=== PATIENT | female | born 1940 | race Caucasian/White ===

== ENCOUNTER 2016-11-17 17:31 | Emergency (ER) | payer MEDICARE, BC ==
[2016-11-17] MEDS ORDERED: Sodium Chloride 0.9% 10 ML Syringe FLUSH PRN (18:52)
[2016-11-17] MEDS ORDERED: Iopamidol 612 MG/ML 100 ML Bottle IV PRN (18:54)
[2016-11-17 19:30] VITALS: BP 182/102
--- NOTE | 2016-11-17 19:34 | EDM.PDOC ---
ED HPI GENERAL MEDICAL PROBLEM - General Chief Complaint: Abdominal Pain Stated Complaint: EXTREME STOMACH ACHE FOR 10 DAYS Time Seen by Provider: 11/17/16 18:19 Source of Information: Reports: Patient History Limitations: Reports: No Limitations - History of Present Illness INITIAL COMMENTS - FREE TEXT/NARRATIVE: This lady complains of an extreme stomach ache for the past 10 days. It's gotten worse over the past 3 days. She has vomited occasionally. She says she can't hold anything down. There's been no blood in the vomitus she denies any kind of bowel problems. Her last bowel movement was yesterday. She describes occasional chills. She denies any urinary symptoms she denies back pain. The abdominal pain is continuous. Abdomen Pain Score (Numeric/FACES): 10 - Related Data Allergies Allergy/AdvReac Type Severity Reaction Status Date / Time nitrofurantoin Allergy Intermediate Rash Verified 11/17/16 18:26 [From Furadantin] nitrofurantoin Allergy Intermediate Rash Verified 11/17/16 18:26 macrocrystalline [From Macrodantin] latex Allergy Rash Verified 11/17/16 18:26 Home Meds: Home Meds Aspirin [Children's Aspirin] 2 tab PO DAILY 12/27/13 [History] Calcium Carb & Citrate/Vit D3 [Calcium + D3 ER Tablet] 750 tab PO BID 12/27/13 [ History] Diltiazem HCl [Diltiazem ER] 1 tab PO DAILY 12/27/13 [History] Glucosamine/D3/Boswellia Kathryn [Osteo Bi-Flex Caplet] 1 tab PO DAILY 12/27/13 [ History] Multivitamin [Multi Vitamin Daily] 1 tab PO DAILY 12/27/13 [History] Niacin 1,000 mg PO DAILY 12/27/13 [History] [place]-3 Fatty Acids [Fish Oil] 1,000 mg PO DAILY 12/27/13 [History] cycloSPORINE [Restasis] 1 drop TOP BID 12/27/13 [History] Levothyroxine 1 tab PO DAILY 11/17/16 [History] Lisinopril [Lisinopril] 1 tab PO DAILY 11/17/16 [History] Rosuvastatin Calcium [Rosuvastatin Calcium] 5 mg PO BEDTIME 11/17/16 [History] metFORMIN [Glucophage] 500 mg PO BIDMEALS 11/17/16 [History] Past Medical History HEENT History: Reports: Cataract, Impaired Vision Cardiovascular History: Reports: High Cholesterol, Hypertension 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 History: Reports: Endometriosis Musculoskeletal History: Reports: Fracture, Other (See Below) Other Musculoskeletal History: left wrist fx Endocrine/Metabolic History: Reports: Hypothyroidism - Past Surgical History Female Surgical History: Reports: Hysterectomy Oncologic Surgical History: Reports: Biopsy of Breast Social & Family History - Tobacco Use Smoking Status *Q: Light Tobacco Smoker Years of Tobacco use: 24 Packs/Tins Daily: 0.5 - Alcohol Use Days Per Week of Alcohol Use: 2 Number of Drinks Per Day: 1 Total Drinks Per Week: 2 - Recreational Drug Use Recreational Drug Use: No ED ROS GENERAL - Review of Systems Review Of Systems: See Below Constitutional: Reports: Chills HEENT: Reports: No Symptoms Respiratory: Reports: No Symptoms Cardiovascular: Reports: No Symptoms Endocrine: Reports: No Symptoms GI/Abdominal: Reports: Abdominal Pain, Vomiting : Reports: No Symptoms Musculoskeletal: Reports: No Symptoms Skin: Reports: No Symptoms Neurological: Reports: No Symptoms ED EXAM, GI/ABD - Physical Exam Exam: See Below Exam Limited By: No Limitations General Appearance: Alert, WD/WN, No Apparent Distress Eyes: Bilateral: Normal Appearance Ears: Normal External Exam Nose: Normal Inspection Throat/Mouth: Normal Inspection Head: Atraumatic Neck: Normal Inspection Respiratory/Chest: Lungs Clear Cardiovascular: Regular Rate, Rhythm, No Murmur GI/Abdominal Exam: Soft, Other (Hypoactive bowel sounds. Clearly palpable large stool mass to the right side of the abdomen. Smaller stool mass to the left and then left lower quadrant. Some moderate tenderness across the upper abdomen but no Cano sign.) Extremities: Normal Inspection Neurological: Alert, Oriented Psychiatric: Normal Affect Skin Exam: Warm, Dry Course - Vital Signs Last Recorded V/S: Last Vital Signs Temp 36.4 C 11/17/16 18:23 Pulse 72 11/17/16 19:30 Resp 16 11/17/16 19:30 BP 182/102 H 11/17/16 19:30 Pulse Ox 97 11/17/16 19:30 - Orders/Labs/Meds Orders: Active Orders 24 hr Category Date Time Status Abdomen Pelvis w Cont [CT] Stat Exams 11/17/16 18:50 Taken Iopamidol [Isovue-300 (61%)] Med 11/17/16 18:54 Active 96 ml IV . DIRECTED PRN Sodium Chloride 0.9% [Normal Saline] 1,000 ml Med 11/17/16 19:45 Active IV ASDIRECTED Sodium Chloride 0.9% [Normal Saline] 70 ml Med 11/17/16 19:00 Active IV ASDIRECTED Sodium Chloride 0.9% [Saline Flush] Med 11/17/16 18:52 Active 10 ml FLUSH ASDIRECTED PRN Saline Lock Insert [OM.PC] Urgent Oth 11/17/16 18:52 Ordered Medication Orders Sodium Chloride (Normal Saline) 70 mls @ 3 mls/sec IV ASDIRECTED MILLIE Last Admin: 11/17/16 19:18 Dose: 3 mls/sec Sodium Chloride (Normal Saline) 1,000 mls @ 999 mls/hr IV ASDIRECTED MILLIE Last Admin: 11/17/16 19:45 Dose: 999 mls/hr Iopamidol (Isovue-300 (61%)) 96 ml IV . DIRECTED PRN PRN Reason: RADIOLOGY EXAM Stop: 11/18/16 18:55 Last Admin: 11/17/16 19:18 Dose: 96 ml Sodium Chloride (Saline Flush) 10 ml FLUSH ASDIRECTED PRN PRN Reason: Keep Vein Open Last Admin: 11/17/16 19:15 Dose: 10 ml Labs: Laboratory Tests 11/17/16 11/17/16 11/17/16 Range/Units 19:01 19:01 19:01 WBC 13.1 H (4.5-11.0) K/uL RBC 5.01 (3.30-5.50) M/uL Hgb 15.3 H (12.0-15.0) g/dL Hct 44.0 (36.0-48.0) % MCV 88 (80-98) fL MCH 31 (27-31) pg MCHC 35 (32-36) % Plt Count 284 (150-400) K/uL Neut % (Auto) 76 H (36-66) % Lymph % (Auto) 15 L (24-44) % Clarke % (Auto) 8 H (2-6) % Eos % (Auto) 1 L (2-4) % Baso % (Auto) 0 (0-1) % Sodium (140-148) mmol/L Potassium (3.6-5.2) mmol/L Chloride (100-108) mmol/L Carbon Dioxide (21-32) mmol/L Anion Gap (5.0-14.0) mmol/L BUN (7-18) mg/dL Creatinine (0.6-1.0) mg/dL Est Cr Clr Drug Dosing mL/min Estimated GFR (MDRD) (>60) Glucose (74-106) mg/dL Lactic Acid 1.5 (0.4-2.0) mmol/L Calcium (8.5-10.1) mg/dL Total Bilirubin (0.2-1.0) mg/dL AST (15-37) U/L ALT (12-78) U/L Alkaline Phosphatase (46-116) U/L Total Protein (6.4-8.2) g/dL Albumin (3.4-5.0) g/dL Globulin (2.3-3.5) g/dL Albumin/Globulin Ratio (1.2-2.2) Amylase 114 (25-115) U/L Lipase 742 H (73-393) U/L Urine Color Urine Appearance Urine pH (4.5-8.0) Ur Specific [place] (1.008-1.030) Urine Protein (NEGATIVE) mg/dL Urine Glucose (UA) (NEGATIVE) mg/dL Urine Ketones (NEGATIVE) mg/dL Urine Occult Blood (NEGATIVE) Urine Nitrite (NEGATIVE) Urine Bilirubin (NEGATIVE) Urine Urobilinogen (NORMAL) mg/dL Ur Leukocyte Esterase (NEGATIVE) Urine RBC (0-5) Urine WBC (0-5) Ur Epithelial Cells Amorphous Sediment Urine Bacteria Urine Mucus 11/17/16 11/17/16 Range/Units 19:01 19:35 WBC (4.5-11.0) K/uL RBC (3.30-5.50) M/uL Hgb (12.0-15.0) g/dL Hct (36.0-48.0) % MCV (80-98) fL MCH (27-31) pg MCHC (32-36) % Plt Count (150-400) K/uL Neut % (Auto) (36-66) % Lymph % (Auto) (24-44) % Clarke % (Auto) (2-6) % Eos % (Auto) (2-4) % Baso % (Auto) (0-1) % Sodium 138 L (140-148) mmol/L Potassium 3.4 L (3.6-5.2) mmol/L Chloride 100 (100-108) mmol/L Carbon Dioxide 26 (21-32) mmol/L Anion Gap 15.4 H (5.0-14.0) mmol/L BUN 11 (7-18) mg/dL Creatinine 0.8 (0.6-1.0) mg/dL Est Cr Clr Drug Dosing 48.80 mL/min Estimated GFR (MDRD) > 60 (>60) Glucose 133 H (74-106) mg/dL Lactic Acid (0.4-2.0) mmol/L Calcium 10.2 H (8.5-10.1) mg/dL Total Bilirubin 0.4 (0.2-1.0) mg/dL AST 14 L (15-37) U/L ALT 19 (12-78) U/L Alkaline Phosphatase 51 (46-116) U/L Total Protein 7.5 (6.4-8.2) g/dL Albumin 3.4 (3.4-5.0) g/dL Globulin 4.1 H (2.3-3.5) g/dL Albumin/Globulin Ratio 0.8 L (1.2-2.2) Amylase (25-115) U/L Lipase (73-393) U/L Urine Color Yellow Urine Appearance Clear Urine pH 7.0 (4.5-8.0) Ur Specific [place] 1.010 (1.008-1.030) Urine Protein Negative (NEGATIVE) mg/dL Urine Glucose (UA) Normal (NEGATIVE) mg/dL Urine Ketones Negative (NEGATIVE) mg/dL Urine Occult Blood Negative (NEGATIVE) Urine Nitrite Negative (NEGATIVE) Urine Bilirubin Negative (NEGATIVE) Urine Urobilinogen Normal (NORMAL) mg/dL Ur Leukocyte Esterase Negative (NEGATIVE) Urine RBC 0-5 (0-5) Urine WBC 5-10 H (0-5) Ur Epithelial Cells Few Amorphous Sediment Few Urine Bacteria Moderate Urine Mucus Few Meds: Medications Generic Name Dose Route Start Last Admin Trade Name Freq PRN Reason Stop Dose Admin Sodium Chloride 70 mls @ 3 mls/sec 11/17/16 19:00 11/17/16 19:18 Normal Saline IV 3 mls/sec ASDIRECTED MILLIE Administration Sodium Chloride 1,000 mls @ 999 mls/hr 11/17/16 19:45 11/17/16 19:45 Normal Saline IV 999 mls/hr ASDIRECTED MILLIE Administration Iopamidol 96 ml 11/17/16 18:54 11/17/16 19:18 Isovue-300 (61%) IV 11/18/16 18:55 96 ml . DIRECTED PRN Administration RADIOLOGY EXAM Sodium Chloride 10 ml 11/17/16 18:52 11/17/16 19:15 Saline Flush FLUSH 10 ml ASDIRECTED PRN Administration Keep Vein Open Discontinued Medications Generic Name Dose Route Start Last Admin Trade Name Fregerhard PRN Reason Stop Dose Admin Magnesium Citrate 296 ml 11/17/16 20:29 11/17/16 20:43 Citrate Of Magnesia PO 11/17/16 20:30 296 ml ONETIME ONE Administration - Radiology Interpretation Free Text/Narrative:: Abdominal CT with contrast shows a large amount of stool throughout the colon but particularly to the ascending colon. No evidence of any other acute process - Re-Assessments/Exams Free Text/Narrative Re-Assessment/Exam: 11/17/16 19:[address] with contrast pt says she has DM and take metformin. That was not on her med list and she omitted DM on my history. Free Text/Narrative Re-Assessment/Exam: 11/17/16 21:10 This lady received 1 bottle magnesium citrate orally Departure - Departure Time of Disposition: 21:09 Disposition: Home, Self-Care 01 Condition: Fair Clinical Impression: Abdominal pain, Constipation - Discharge Information Referrals: PCP,None [Primary Care Provider] - Forms: ED Department Discharge Additional Instructions: The CT scan shows a very large amount of stool in your colon especially on the right side. This is pretty extensive constipation. It's caused by the stool moving slowly through the colon and the water gets absorbed out of it. Tonight drink several large glasses of water. The magnesium citrate should cause your bowels to clear out within the next 12-24 hours. After that eat a high fiber diet every day. A couple bowls of bran cereal with a lot of insoluble fiber will help. You could also use one of the fiber laxative such as Citrucel or Metamucil. If that doesn't do it you could add in Yue lax If you're not better in 2 days be sure to see your Dr. or return to the ER at any time if worse - My Orders Last 24 Hours: My Active Orders 11/17/16 18:50 Abdomen Pelvis w Cont [CT] Stat 11/17/16 18:52 Sodium Chloride 0.9% [Saline Flush] 10 ml FLUSH ASDIRECTED PRN Saline Lock Insert [OM.PC] Urgent 11/17/16 18:54 Iopamidol [Isovue-300 (61%)] 96 ml IV . DIRECTED PRN 11/17/16 19:00 Sodium Chloride 0.9% [Normal Saline] 70 ml IV ASDIRECTED 11/17/16 19:45 Sodium Chloride 0.9% [Normal Saline] 1,000 ml IV ASDIRECTED - Assessment/Plan Last 24 Hours: My Active Orders 11/17/16 18:50 Abdomen Pelvis w Cont [CT] Stat 11/17/16 18:52 Sodium Chloride 0.9% [Saline Flush] 10 ml FLUSH ASDIRECTED PRN Saline Lock Insert [OM.PC] Urgent 11/17/16 18:54 Iopamidol [Isovue-300 (61%)] 96 ml IV . DIRECTED PRN 11/17/16 19:00 Sodium Chloride 0.9% [Normal Saline] 70 ml IV ASDIRECTED 11/17/16 19:45 Sodium Chloride 0.9% [Normal Saline] 1,000 ml IV ASDIRECTED
[2016-11-17] MEDS ORDERED: Sodium Chloride 0.9% 1,000 ML IV SCH (19:45)
[2016-11-17] MEDS ORDERED: Magnesium Citrate Solution 296 ML Bottle PO ONE (20:29)
== END 2016-11-17 21:25 | disposition home or self-care (01) ==
LOC: JP.ED 17:31
DX: K59.00 Constipation, unspecified (principal); E78.00 Pure hypercholesterolemia, unspecified; I10 Essential (primary) hypertension; E03.9 Hypothyroidism, unspecified; F17.210 Nicotine dependence, cigarettes, uncomplicated; Z90.710 Acquired absence of both cervix and uterus; Z79.899 Other long term (current) drug therapy
CPT/HCPCS: 36415; 74177; 80053; 81001; 82150; 83605; 83690; 85025; 96360; 99284; A9270; J7030; J7040; J7050; Q9967

== ENCOUNTER 2021-03-05 12:19 | Inpatient (IN) | payer MEDICARE, BC ==
[2021-03-05] MEDS ORDERED: Ondansetron 4 MG/2 ML SDV IVPUSH ONE (14:10)
[2021-03-05] MEDS ORDERED: HYDROmorphone 0.5 MG/0.5 ML Syringe IVPUSH ONE (14:11)
--- NOTE | 2021-03-05 14:12 | EDM.PDOC ---
ED HPI GENERAL MEDICAL PROBLEM - General Chief Complaint: Abdominal Pain Stated Complaint: STOMACH ACHES , DIARRHEA Time Seen by Provider: 03/05/21 14:11 Source of Information: Reports: Patient History Limitations: Reports: No Limitations - History of Present Illness INITIAL COMMENTS - FREE TEXT/NARRATIVE: pt arrived with a history of having abdomanal pain starting about midnight. She vomited several times but there was no blood in the emesis. She then developed diarrhea and it looked like pure bright red blood. She did note some clots in the stool. She continued to have generalized abdomanal pain today. Onset: Other ( pain started last nite. ) Duration: Hour(s): Location: Reports: Abdomen, Other (pt is now having bloody stools. ) Associated Symptoms: Reports: Nausea/Vomiting, Weakness Lower Abdomen Pain Score (Numeric/FACES): 8 - Related Data Allergies Allergy/AdvReac Type Severity Reaction Status Date / Time nitrofurantoin Allergy Intermediate Rash Verified 11/17/16 18:26 [From Furadantin] nitrofurantoin Allergy Intermediate Rash Verified 11/17/16 18:26 macrocrystalline [From Macrodantin] latex Allergy Rash Verified 11/17/16 18:26 Home Meds: Home Meds Aspirin [Children's Aspirin] 2 tab PO DAILY 12/27/13 [History] Calcium Carb, Citrate/Vit D3 [Calcium + D3 ER Tablet] 750 tab PO BID 12/27/13 [History] Diltiazem HCl [Diltiazem ER] 1 tab PO DAILY 12/27/13 [History] Glucosamine/D3/Boswellia Kathryn [Osteo Bi-Flex Caplet] 1 tab PO DAILY 12/27/13 [History] Multivitamin [Multi-Vitamin Daily] 1 tab PO DAILY 12/27/13 [History] Niacin 1,000 mg PO DAILY 12/27/13 [History] [place]-3 Fatty Acids [Fish Oil] 1,000 mg PO DAILY 12/27/13 [History] cycloSPORINE [Restasis] 1 drop TOP BID 12/27/13 [History] Levothyroxine 1 tab PO DAILY 11/17/16 [History] Lisinopril 1 tab PO DAILY 11/17/16 [History] Rosuvastatin Calcium 5 mg PO BEDTIME 11/17/16 [History] metFORMIN [Glucophage] 500 mg PO BIDMEALS 11/17/16 [History] Ciprofloxacin [Ciprofloxacin HCl] 500 mg PO BIDAC #12 tablet 03/08/21 [Rx] Lactobacillus Rhamnosus GG [Culturelle] 1 cap PO BID #60 cap 03/08/21 [Rx] metroNIDAZOLE 250 mg PO QID #24 tablet 03/08/21 [Rx] Past Medical History HEENT History: Reports: Cataract, Impaired Vision Cardiovascular History: Reports: High Cholesterol, Hypertension 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 Musculoskeletal History: Reports: Fracture, Other (See Below) Other Musculoskeletal History: left wrist fx Endocrine/Metabolic History: Reports: Hypothyroidism - Infectious Disease History Infectious Disease History: Reports: Chicken Pox, Measles, Mumps - Past Surgical History Female Surgical History: Reports: Hysterectomy Oncologic Surgical History: Reports: Biopsy of Breast Social & Family History - Tobacco Use Tobacco Use Status *Q: Never Tobacco User - Caffeine Use Caffeine Use: Reports: Coffee ED ROS GENERAL - Review of Systems Review Of Systems: See Below Constitutional: Reports: Decreased Appetite HEENT: Reports: No Symptoms Respiratory: Reports: No Symptoms Cardiovascular: Reports: No Symptoms Endocrine: Reports: No Symptoms GI/Abdominal: Reports: Abdominal Pain, Bloody Stool, Diarrhea, Decreased Appetite, Nausea, Vomiting : Reports: No Symptoms Musculoskeletal: Reports: No Symptoms Skin: Reports: No Symptoms ED EXAM, GI/ABD - Physical Exam Exam: See Below Text/Narrative:: pt arrived with pain in the abdoman, not localized. She has been passing bloody stools. She developed pain about midnight last niote. Exam Limited By: No Limitations General Appearance: Alert, Anxious, Moderate Distress Ears: Normal TMs Nose: Normal Inspection Throat/Mouth: Normal Inspection Head: Atraumatic Neck: Normal Inspection Respiratory/Chest: No Respiratory Distress Cardiovascular: Regular Rate, Rhythm GI/Abdominal Exam: Tender, Other ( diffuse tenderness without guarding. ) (Female) Exam: Deferred Rectal (Female) Exam: Deferred Back Exam: Normal Inspection Extremities: Normal Inspection Course - Vital Signs Last Recorded V/S: Last Vital Signs Temp 36 C L 03/08/21 07:36 Pulse 89 03/08/21 07:36 Resp 12 03/08/21 07:36 BP 159/60 H 03/08/21 08:00 Pulse Ox 98 03/08/21 07:36 - Orders/Labs/Meds Labs: Laboratory Tests 1203/05/21 03/05/21 Range/Units 14:24 14:24 14:24 WBC 19.6 H (4.5-11.0) K/uL RBC 5.01 (3.30-5.50) M/uL Hgb 14.8 (12.0-15.0) g/dL Hct 43.3 (36.0-48.0) % MCV 86 (80-98) fL MCH 30 (27-31) pg MCHC 34 (32-36) % Plt Count 313 (150-400) K/uL Neut % (Auto) 87.9 H (36-66) % Lymph % (Auto) 3.8 L (24-44) % [place] % (Auto) 8.2 H (2-6) % Eos % (Auto) 0.0 L (2-4) % Baso % (Auto) 0.1 (0-1) % Sodium 135 L (140-148) mmol/L Potassium 4.8 (3.6-5.2) mmol/L Chloride 96 L (100-108) mmol/L Carbon Dioxide 22 (21-32) mmol/L Anion Gap 21.8 H (5.0-14.0) mmol/L BUN 13 (7-18) mg/dL Creatinine 1.0 (0.6-1.0) mg/dL Est Cr Clr Drug Dosing 38.35 mL/min Estimated GFR (MDRD) 54 L (>60) Glucose 279 H (74-106) mg/dL Calcium 9.5 (8.5-10.1) mg/dL Total Bilirubin 0.4 (0.2-1.0) mg/dL AST 30 D (15-37) U/L ALT 39 D (12-78) U/L Alkaline Phosphatase 48 (46-116) U/L C-Reactive Protein 4.60 H (0.0-0.3) mg/dL Total Protein 7.3 (6.4-8.2) g/dL Albumin 3.8 (3.4-5.0) g/dL Globulin 3.5 (2.3-3.5) g/dL Albumin/Globulin Ratio 1.1 L (1.2-2.2) Urine Color (YELLOW) Urine Appearance (CLEAR) Urine pH (5.0-8.0) Ur Specific [place] (1.008-1.030) Urine Protein (NEGATIVE) mg/dL Urine Glucose (UA) (NEGATIVE) mg/dL Urine Ketones (NEGATIVE) mg/dL Urine Occult Blood (NEGATIVE) Urine Nitrite (NEGATIVE) Urine Bilirubin (NEGATIVE) Urine Urobilinogen (0.2-1.0) EU/dL Ur Leukocyte Esterase (NEGATIVE) Urine RBC (0-5) Urine WBC (0-5) Ur Epithelial Cells Amorphous Sediment Urine Bacteria Urine Mucus SARS CoV-2 RNA Rapid CHANELL 03/05/21 03/05/21 Range/Units 15:45 16:15 WBC (4.5-11.0) K/uL RBC (3.30-5.50) M/uL Hgb (12.0-15.0) g/dL Hct (36.0-48.0) % MCV (80-98) fL MCH (27-31) pg MCHC (32-36) % Plt Count (150-400) K/uL Neut % (Auto) (36-66) % Lymph % (Auto) (24-44) % [place] % (Auto) (2-6) % Eos % (Auto) (2-4) % Baso % (Auto) (0-1) % Sodium (140-148) mmol/L Potassium (3.6-5.2) mmol/L Chloride (100-108) mmol/L Carbon Dioxide (21-32) mmol/L Anion Gap (5.0-14.0) mmol/L BUN (7-18) mg/dL Creatinine (0.6-1.0) mg/dL Est Cr Clr Drug Dosing mL/min Estimated GFR (MDRD) (>60) Glucose (74-106) mg/dL Calcium (8.5-10.1) mg/dL Total Bilirubin (0.2-1.0) mg/dL AST (15-37) U/L ALT (12-78) U/L Alkaline Phosphatase (46-116) U/L C-Reactive Protein (0.0-0.3) mg/dL Total Protein (6.4-8.2) g/dL Albumin (3.4-5.0) g/dL Globulin (2.3-3.5) g/dL Albumin/Globulin Ratio (1.2-2.2) Urine Color Yellow (YELLOW) Urine Appearance Clear (CLEAR) Urine pH 6.5 (5.0-8.0) Ur Specific [place] 1.015 (1.008-1.030) Urine Protein Trace H (NEGATIVE) mg/dL Urine Glucose (UA) 500 H (NEGATIVE) mg/dL Urine Ketones Negative (NEGATIVE) mg/dL Urine Occult Blood Negative (NEGATIVE) Urine Nitrite Negative (NEGATIVE) Urine Bilirubin Negative (NEGATIVE) Urine Urobilinogen 0.2 (0.2-1.0) EU/dL Ur Leukocyte Esterase Negative (NEGATIVE) Urine RBC Not seen (0-5) Urine WBC Not seen (0-5) Ur Epithelial Cells Rare Amorphous Sediment Not seen Urine Bacteria Rare Urine Mucus Not seen SARS CoV-2 RNA Rapid CHANELL Negative Meds: Medications Discontinued Medications Generic Name Dose Route Start Last Admin Trade Name Freq PRN Reason Stop Dose Admin Acetaminophen 650 mg 03/05/21 18:51 Acetaminophen 325 Mg Tab PO Q4H PRN Pain (Mild 1-3)/fever Artificial Tears 0 ml 03/05/21 21:45 Hypromellose 0.3% Ophth Soln 15 Ml Bottle EYEBOTH QID PRN Dry Eyes Aspirin 162 mg 03/06/21 09:00 03/08/21 07:59 Aspirin 81 Mg Tab.Ec PO 162 mg DAILY MILLIE Administration Ciprofloxacin 500 mg 03/07/21 16:30 03/08/21 07:41 Ciprofloxacin 500 Mg Tab PO 500 mg BIDAC MILLIE Administration Dextrose 15 gm 03/05/21 18:51 Glucose Gel 15 Gm In 37.5 Gm Tube PO ONETIME PRN Hypoglycemia Dextrose/Water 50 ml 03/05/21 18:51 50% Dextrose In Water 50 Ml Syringe IV ONETIME PRN Hypoglycemia Diltiazem HCl 360 mg 03/06/21 09:00 03/08/21 07:59 Diltiazem 180 Mg Cap.Cd PO 360 mg DAILY MILLIE Administration Hydromorphone HCl 0.5 mg 03/05/21 14:11 03/05/21 14:27 Hydromorphone 0.5 Mg/0.5 Ml Syringe IVPUSH 03/05/21 14:12 0.5 mg ONETIME ONE Administration Sodium Chloride 1,000 mls @ 999 mls/hr 03/05/21 14:15 03/05/21 14:27 Normal Saline IV 999 mls/hr ASDIRECTED MILLIE Administration Sodium Chloride 80 mls @ 3 mls/sec 03/05/21 15:30 03/05/21 15:37 Normal Saline IV 3 mls/sec ASDIRECTED MILLIE Administration Sodium Chloride 1,000 mls @ 250 mls/hr 03/05/21 16:15 Normal Saline IV ASDIRECTED MILLIE Ciprofloxacin/Dextrose 400 mg/ 200 mls @ 200 mls/hr 03/05/21 20:00 03/06/21 03:28 Premix IV 200 mls/hr Q8H MILLIE Administration Metronidazole 500 mg/ Premix 100 mls @ 100 mls/hr 03/05/21 18:30 03/06/21 01:56 IV 100 mls/hr Q8H MILLIE Administration Sodium Chloride 1,000 mls @ 125 mls/hr 03/05/21 18:51 03/06/21 07:06 Normal Saline IV 125 mls/hr ASDIRECTED MILLIE Administration Metronidazole 500 mg/ Premix 100 mls @ 100 mls/hr 03/06/21 10:00 03/07/21 11:15 IV Not Given Q8H MILLIE Ciprofloxacin/Dextrose 400 mg/ 200 mls @ 200 mls/hr 03/06/21 12:00 03/07/21 04:30 Premix IV 200 mls/hr Q8H MILLIE Administration Magnesium Sulfate 2 gm/ Premix 50 mls @ 25 mls/hr 03/06/21 09:00 03/06/21 14:25 IV 03/06/21 16:59 25 mls/hr Q6H MILLIE Administration Sodium Chloride 1,000 mls @ 50 mls/hr 03/06/21 13:30 03/07/21 00:56 Normal Saline IV 50 mls/hr ASDIRECTED MILLIE Administration Magnesium Sulfate 2 gm/ Premix 50 mls @ 25 mls/hr 03/07/21 09:00 03/07/21 08:50 IV 03/07/21 10:59 25 mls/hr Q6H MILLIE Administration Insulin Human Lispro 0 unit 03/05/21 20:00 03/08/21 11:45 Insulin Lispro 100 Unit/Ml 3 Ml Kwikpen SUBCUT Not Given QIDACANDBED MILLIE Protocol Iopamidol 119 ml 03/05/21 15:30 03/05/21 15:37 Iopamidol 612 Mg/Ml 150 Ml Bottle IV 119 ml . DIRECTED MILLIE Administration Lactobacillus Rhamnosus 1 cap 03/06/21 13:30 03/08/21 08:00 Lactobacillus Rhamnosus Gg (Probiotic) Cap PO 1 cap BID MILLIE Administration Levothyroxine Sodium 112 mcg 03/06/21 09:00 03/08/21 07:41 Levothyroxine 112 Mcg Tab PO 112 mcg ACBREAKFAST MILLIE Administration Lisinopril 10 mg 03/06/21 09:00 03/08/21 08:00 Lisinopril 10 Mg Tab PO 10 mg DAILY MILLIE Administration Magnesium Oxide 400 mg 03/06/21 09:00 03/08/21 07:59 Magnesium Oxide 400 Mg Tab PO 400 mg BID MILLIE Administration Metronidazole 250 mg 03/07/21 12:00 03/08/21 11:31 Metronidazole 250 Mg Tab PO 250 mg Q6H MILLIE Administration Ondansetron HCl 4 mg 03/05/21 14:10 03/05/21 14:27 Ondansetron 4 Mg/2 Ml Sdv IVPUSH 03/05/21 14:11 4 mg ONETIME ONE Administration Ondansetron HCl 4 mg 03/05/21 18:51 Ondansetron 4 Mg/2 Ml Sdv IV Q4H PRN Nausea/Vomiting Oxycodone HCl 5 mg 03/05/21 18:51 Oxycodone 5 Mg Tab PO Q4H PRN Pain (moderate 4-6) Potassium Chloride 40 meq 03/06/21 08:30 03/06/21 08:27 Potassium Chloride 20 Meq Tab.Er PO 03/06/21 08:31 40 meq ONETIME ONE Administration Rosuvastatin Calcium 5 mg 03/05/21 21:00 03/07/21 20:58 Rosuvastatin 10 Mg Tab PO 5 mg BEDTIME MILLIE Administration Sodium Chloride 10 ml 03/05/21 15:25 03/05/21 15:37 Sodium Chloride 0.9% 10 Ml Syringe FLUSH 10 ml ASDIRECTED PRN Administration Keep Vein Open Sodium Chloride 10 ml 03/05/21 18:51 Sodium Chloride 0.9% 10 Ml Syringe FLUSH ASDIRECTED PRN Keep Vein Open - Re-Assessments/Exams Free Text/Narrative Re-Assessment/Exam: 03/05/21 16:22 pt had a hg which was stable[place] [id number] and a elevated crp. Pt had a cat scan of the abdoman. Departure - Departure Time of Disposition: 07:00 Disposition: Admitted As Inpatient 68 Condition: Fair Clinical Impression: Colitis, Dehydration - Discharge Information Sepsis Event Note (ED) - Evaluation Sepsis Screening Result: No Definite Risk
[2021-03-05] MEDS ORDERED: Sodium Chloride 0.9% 1,000 ML IV SCH ×2 (14:15→16:15)
[2021-03-05] MEDS ORDERED: Sodium Chloride 0.9% 10 ML Syringe FLUSH PRN ×2 (15:25→18:51)
[2021-03-05] MEDS ORDERED: Sodium Chloride 0.9% 80 ML IV SCH (15:30)
[2021-03-05] MEDS ORDERED: Iopamidol 612 MG/ML 150 ML Bottle IV SCH (15:30)
--- NOTE | 2021-03-05 16:23 | CRLCT ---
For Patients: As a result of the Century Cures Act, medical imaging exams and procedure reports are released immediately into your electronic medical record. You may view this report before your referring provider. If you have questions, please contact your health care provider. Indication: Rectal bleeding Technique: Volumetric multidetector CT images of the abdomen and pelvis were obtained after the administration of intravenous contrast. 118 cc Isovue-300 low osmolar intravenous contrast Comparison: CT abdomen and pelvis November 17, 2016 Findings: There is mild basilar atelectasis and parenchymal scarring, otherwise the lung bases are clear. The liver is moderately enlarged with hepatic steatosis. There is no focal abnormality. The portal vein is patent. The gallbladder is unremarkable without evidence of radiopaque calculus. There is no significant common biliary ductal dilatation or abrupt cut off. The spleen is normal in enhancement and size. There is mild to moderate thickening of the gastric antrum commensurate with chronic gastritis changes. There is a small hiatal hernia. The pancreas is normal in enhancement without significant atrophy. The adrenal glands are unremarkable. The kidneys demonstrate preserved corticomedullary differentiation without evidence of obstructive uropathy. There is moderate stool seen throughout the colon with marked focal thickening and pericolonic inflammation of the descending colon and proximal rectosigmoid colon. There is moderate colonic diverticulosis of the sigmoid colon. The appendix is unremarkable. There is no significant mesenteric, retroperitoneal, or pelvic sidewall lymph nodes. The aorta is not aneurysmal with scattered atherosclerotic calcifications. The solid pelvic viscera are grossly unremarkable. There is no free fluid or free air. The anterior abdominal wall is intact without significant hernias. The lumbar vertebral body heights are grossly maintained with mild degenerative disc disease. There is minimal retrolisthesis of L2 on L3. there is demonstration of a left hip arthroplasty again noted. Impression: Marked focal thickening and pericolonic inflammation of the entire descending colon and proximal sigmoid colon commensurate with infectious or inflammatory colitis. Hepatomegaly and hepatic steatosis. Sequela of chronic gastritis changes. Please note that all CT scans at this facility use dose modulation, iterative reconstruction, and/or weight-based dosing when appropriate to reduce radiation dose to as low as reasonably achievable. Dictated by Aaron Garrido MD @ 03/05/2021 4:22:32 PM (Electronically Signed)
--- NOTE | 2021-03-05 18:21 | PCM.HP.2 ---
H&P History of Present Illness - General Date of Service: 03/05/21 Admit Problem/Dx: Admission Diagnosis/Problem Admission Diagnosis/Problem Colitis Source of Information: Patient, Provider, RN Notes Reviewed History Limitations: Reports: No Limitations - History of Present Illness Initial Comments - Free Text/Narative: Ms. Welch is a 80-year-old woman who was admitted through the emergency department with abdominal pain and bloody diarrhea secondary to infectious colit is. She felt well throughout the day prior to admission, but in the evening began to experience cramping abdominal pain. 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 Because of her symptoms she presented to the emergency department for further evaluation. She has never experienced similar symptoms or colitis in the past. Hemoglobin was obtained and found to be within normal range. White blood cell count is elevated, she denies fever or chills. CT scan of the abdomen pelvis was obtained and showed evidence of inflammation in the descending and first part of the sigmoid colon. These findings were felt to be consistent with infection versus other inflammatory process. She has improved while in the emergency department, abdominal pain and diarrhea have essentially resolved. Lower Abdomen Pain Score (Numeric/FACES): 8 - Related Data Allergies/Adverse Reactions: Allergies Allergy/AdvReac Type Severity Reaction Status Date / Time nitrofurantoin Allergy Intermediate Rash Verified 11/17/16 18:26 [From Furadantin] nitrofurantoin Allergy Intermediate Rash Verified 11/17/16 18:26 macrocrystalline [From Macrodantin] latex Allergy Rash Verified 11/17/16 18:26 Home Medications: Home Meds Aspirin [Children's Aspirin] 2 tab PO DAILY 12/27/13 [History] Calcium Carb, Citrate/Vit D3 [Calcium + D3 ER Tablet] 750 tab PO BID 12/27/13 [History] Diltiazem HCl [Diltiazem ER] 1 tab PO DAILY 12/27/13 [History] Glucosamine/D3/Boswellia Kathryn [Osteo Bi-Flex Caplet] 1 tab PO DAILY 12/27/13 [History] Multivitamin [Multi Vitamin Daily] 1 tab PO DAILY 12/27/13 [History] Niacin 1,000 mg PO DAILY 12/27/13 [History] Lawtell-3 Fatty Acids [Fish Oil] 1,000 mg PO DAILY 12/27/13 [History] cycloSPORINE [Restasis] 1 drop TOP BID 12/27/13 [History] Levothyroxine 1 tab PO DAILY 11/17/16 [History] Lisinopril 1 tab PO DAILY 11/17/16 [History] Rosuvastatin Calcium 5 mg PO BEDTIME 11/17/16 [History] metFORMIN [Glucophage] 500 mg PO BIDMEALS 11/17/16 [History] Past Medical History HEENT History: Reports: Cataract, Impaired Vision Cardiovascular History: Reports: High Cholesterol, Hypertension 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: Reports: Endometriosis Musculoskeletal History: Reports: Fracture, Other (See Below) Other Musculoskeletal History: left wrist fx Endocrine/Metabolic History: Reports: Hypothyroidism - Infectious Disease History Infectious Disease History: Reports: Chicken Pox, Measles, Mumps - Past Surgical History Female Surgical History: Reports: Hysterectomy Oncologic Surgical History: Reports: Biopsy of Breast Social & Family History - Tobacco Use Tobacco Use Status *Q: Never Tobacco User - Caffeine Use Caffeine Use: Reports: Coffee H&P Review of Systems - Review of Systems: Review Of Systems: See Below General: Reports: Malaise, Weakness, Fatigue, Decreased Appetite HEENT: Reports: No Symptoms Pulmonary: Reports: No Symptoms Cardiovascular: Reports: No Symptoms Gastrointestinal: Reports: Abdominal Pain, Diarrhea, Hematochezia, Nausea, Vomiting. Denies: Constipation, Difficulty Swallowing, Distension, Hematemesis, Melena Genitourinary: Reports: No Symptoms Musculoskeletal: Reports: No Symptoms Skin: Reports: No Symptoms Psychiatric: Reports: No Symptoms Neurological: Reports: No Symptoms Hematologic/Lymphatic: Reports: No Symptoms Immunologic: Reports: No Symptoms Exam - Exam Exam: See Below - Vital Signs Vital Signs: Last Vital Signs Temp 98.2 F 03/05/21 13:20 Pulse 117 H 03/05/21 13:20 Resp 20 03/05/21 13:20 BP 175/87 H 03/05/21 13:20 Pulse Ox 97 03/05/21 13:20 Weight: 175 lb - Exam Quality Assessment: DVT Prophylaxis General: Alert, Oriented, Cooperative, Mild Distress HEENT: Conjunctiva Clear, Hearing Intact, Mucosa Moist & Drew, Normal Nasal Septum, Posterior Pharynx Clear, Pupils Equal Neck: Supple, Trachea Midline, +2 Carotid Pulse wo Bruit Lungs: Clear to Auscultation, Normal Respiratory Effort Cardiovascular: Regular Rate, Regular Rhythm, Normal S1, Normal S2. No: Systolic Murmur, Diastolic Murmur GI/Abdominal Exam: Soft, Non-Tender, No Organomegaly, No Distention Back Exam: Normal Inspection, Full Range of Motion Extremities: Non-Tender, No Pedal Edema Skin: Warm, Dry, Intact Neurological: Cranial Nerves Intact, Strength Equal Bilateral, Normal Speech, Normal Tone, Sensation Intact. No: Focal Deficit Neuro Extensive - Mental Status: Alert, Oriented x3, Normal Mood/Affect, Normal Cognition, Memory Intact - Patient Data Lab Results Last 24 hrs: Laboratory Results - last 24 hr 03/05/21 03/05/21 03/05/21 Range/Units 14:24 14:24 14:24 WBC 19.6 H (4.5-11.0) K/uL RBC 5.01 (3.30-5.50) M/uL Hgb 14.8 (12.0-15.0) g/dL Hct 43.3 (36.0-48.0) % MCV 86 (80-98) fL MCH 30 (27-31) pg MCHC 34 (32-36) % Plt Count 313 (150-400) K/uL Neut % (Auto) 87.9 H (36-66) % Lymph % (Auto) 3.8 L (24-44) % Winn % (Auto) 8.2 H (2-6) % Eos % (Auto) 0.0 L (2-4) % Baso % (Auto) 0.1 (0-1) % Sodium 135 L (140-148) mmol/L Potassium 4.8 (3.6-5.2) mmol/L Chloride 96 L (100-108) mmol/L Carbon Dioxide 22 (21-32) mmol/L Anion Gap 21.8 H (5.0-14.0) mmol/L BUN 13 (7-18) mg/dL Creatinine 1.0 (0.6-1.0) mg/dL Est Cr Clr Drug Dosing 38.35 mL/min Estimated GFR (MDRD) 54 L (>60) Glucose 279 H (74-106) mg/dL Calcium 9.5 (8.5-10.1) mg/dL Total Bilirubin 0.4 (0.2-1.0) mg/dL AST 30 D (15-37) U/L ALT 39 D (12-78) U/L Alkaline Phosphatase 48 (46-116) U/L C-Reactive Protein 4.60 H (0.0-0.3) mg/dL Total Protein 7.3 (6.4-8.2) g/dL Albumin 3.8 (3.4-5.0) g/dL Globulin 3.5 (2.3-3.5) g/dL Albumin/Globulin Ratio 1.1 L (1.2-2.2) Urine Color (YELLOW) Urine Appearance (CLEAR) Urine pH (5.0-8.0) Ur Specific [place] (1.008-1.030) Urine Protein (NEGATIVE) mg/dL Urine Glucose (UA) (NEGATIVE) mg/dL Urine Ketones (NEGATIVE) mg/dL Urine Occult Blood (NEGATIVE) Urine Nitrite (NEGATIVE) Urine Bilirubin (NEGATIVE) Urine Urobilinogen (0.2-1.0) EU/dL Ur Leukocyte Esterase (NEGATIVE) Urine RBC (0-5) Urine WBC (0-5) Ur Epithelial Cells Amorphous Sediment Urine Bacteria Urine Mucus SARS CoV-2 RNA Rapid CHANELL 03/05/21 03/05/21 Range/Units 15:45 16:15 WBC (4.5-11.0) K/uL RBC (3.30-5.50) M/uL Hgb (12.0-15.0) g/dL Hct (36.0-48.0) % MCV (80-98) fL MCH (27-31) pg MCHC (32-36) % Plt Count (150-400) K/uL Neut % (Auto) (36-66) % Lymph % (Auto) (24-44) % Winn % (Auto) (2-6) % Eos % (Auto) (2-4) % Baso % (Auto) (0-1) % Sodium (140-148) mmol/L Potassium (3.6-5.2) mmol/L Chloride (100-108) mmol/L Carbon Dioxide (21-32) mmol/L Anion Gap (5.0-14.0) mmol/L BUN (7-18) mg/dL Creatinine (0.6-1.0) mg/dL Est Cr Clr Drug Dosing mL/min Estimated GFR (MDRD) (>60) Glucose (74-106) mg/dL Calcium (8.5-10.1) mg/dL Total Bilirubin (0.2-1.0) mg/dL AST (15-37) U/L ALT (12-78) U/L Alkaline Phosphatase (46-116) U/L C-Reactive Protein (0.0-0.3) mg/dL Total Protein (6.4-8.2) g/dL Albumin (3.4-5.0) g/dL Globulin (2.3-3.5) g/dL Albumin/Globulin Ratio (1.2-2.2) Urine Color Yellow (YELLOW) Urine Appearance Clear (CLEAR) Urine pH 6.5 (5.0-8.0) Ur Specific [place] 1.015 (1.008-1.030) Urine Protein Trace H (NEGATIVE) mg/dL Urine Glucose (UA) 500 H (NEGATIVE) mg/dL Urine Ketones Negative (NEGATIVE) mg/dL Urine Occult Blood Negative (NEGATIVE) Urine Nitrite Negative (NEGATIVE) Urine Bilirubin Negative (NEGATIVE) Urine Urobilinogen 0.2 (0.2-1.0) EU/dL Ur Leukocyte Esterase Negative (NEGATIVE) Urine RBC Not seen (0-5) Urine WBC Not seen (0-5) Ur Epithelial Cells Rare Amorphous Sediment Not seen Urine Bacteria Rare Urine Mucus Not seen SARS CoV-2 RNA Rapid CHANELL Negative Result Diagrams: 03/05/21 14:24 03/05/21 14:24 Sepsis Event Note - Evaluation Sepsis Screening Result: No Definite Risk - Focused Exam Vital Signs: Vital Signs Temp Pulse Resp BP Pulse Ox 03/05/21 13:20 98.2 F 117 H 20 175/87 H 97 03/05/21 13:10 98.2 F 117 H 20 175/87 H 97 *Q Meaningful Use (ADM) - VTE *Q VTE Pharmacological Contraindications *Q: Active Hemorrhage - VTE Risk Assess *Q Each Risk Factor Represents 1 Point: Obesity ( BMI > 25 kg/m2) Total Score 1 Point Risk Factors: 1 Each Risk Factor Represents 2 Points: None Total Score 2 Point Risk Factors: 0 Each Risk Factor Represents 3 Points: Age 75 Years or Greater Total Score 3 Point Risk Factors: 3 Each Risk Factor Represents 5 Points: None Total Score 5 Point Risk Factors: 0 Venous Thromboembolism Risk Factor Score *Q: 4 Problem List Initiated/Reviewed/Updated: Yes Orders Last 24hrs: Active Orders 24 hr Category Date Time Status Patient Status Manage Transfer [TRANSFER] Routine ADT 03/05/21 18:14 Ordered Ciprofloxacin in D5W [Cipro in D5W 400 MG/200 ML] 400 Med 03/05/21 20:00 Active mg Premix Bag 1 bag IV Q8H Iopamidol [Isovue-300 (61%)] Med 03/05/21 15:30 Active 119 ml IV . DIRECTED Sodium Chloride 0.9% [Normal Saline] 1,000 ml Med 03/05/21 14:15 Active IV ASDIRECTED Sodium Chloride 0.9% [Normal Saline] 1,000 ml Med 03/05/21 16:15 Active IV ASDIRECTED Sodium Chloride 0.9% [Normal Saline] 80 ml Med 03/05/21 15:30 Active IV ASDIRECTED Sodium Chloride 0.9% [Saline Flush] Med 03/05/21 15:25 Active 10 ml FLUSH ASDIRECTED PRN metroNIDAZOLE/Normal Saline [Flagyl in NS 500 MG/100 ML Med 03/05/21 18:30 Active ] 500 mg Premix Bag 1 bag IV Q8H Resuscitation Status Routine Resus Stat 03/05/21 18:16 Ordered Medication Orders Sodium Chloride (Normal Saline) 1,000 mls @ 999 mls/hr IV ASDIRECTED [facility] Last Admin: 03/05/21 14:27 Dose: 999 mls/hr Documented by: LIZBETH Sodium Chloride (Normal Saline) 80 mls @ 3 mls/sec IV ASDIRECTED MILLIE Last Admin: 03/05/21 15:37 Dose: 3 mls/sec Documented by: HALEY Sodium Chloride (Normal Saline) 1,000 mls @ 250 mls/hr IV ASDIRECTED MILLIE Ciprofloxacin/Dextrose 400 mg/ (Premix) 200 mls @ 200 mls/hr IV Q8H MILLIE Metronidazole 500 mg/ Premix 100 mls @ 100 mls/hr IV Q8H MILLIE Iopamidol (Iopamidol 612 Mg/Ml 150 Ml Bottle) 119 ml IV . DIRECTED [facility] Last Admin: 03/05/21 15:37 Dose: 119 ml Documented by: HALEY Sodium Chloride (Sodium Chloride 0.9% 10 Ml Syringe) 10 ml FLUSH ASDIRECTED PRN PRN Reason: Keep Vein Open Last Admin: 03/05/21 15:37 Dose: 10 ml Documented by: HALEY Assessment/Plan Comment:: ASSESSMENT AND PLAN INFECTIOUS COLITIS-most likely cause of her colitis, less likely other inflammatory processes. No evidence of ischemic colitis noted on CT. -Clear liquid diet -IV fluids for hydration -Pain and nausea medication as needed -IV ciprofloxacin and Flagyl HYPERTENSION -Continue outpatient medications HYPOTHYROIDISM -Continue outpatient thyroid replacement MAINTENANCE ISSUES -DVT prophylaxis; SCUDs, hold on anticoagulation because of bleeding -GI prophylaxis; not indicated -Angeles catheter; not indicated -Nutrition; clear liquid diet -Nicotine dependence; not required CODE STATUS-FULL CODE ADMISSION STATUS-patient will be admitted to inpatient status, expect at least a 2 night hospital stay for evaluation and management of problems as outlined above. At the time of this admission I do not reasonably expected evaluation and management of this problem will require more than a 96 hour hospital stay. DISPOSITION-anticipate discharge to home after the hospital stay. PRIMARY CARE PROVIDER-Dr. Ro - Mortality Measure Prognosis:: Good
[2021-03-05] MEDS ORDERED: Ondansetron 4 MG/2 ML SDV IV PRN (18:51)
[2021-03-05] MEDS ORDERED: oxyCODONE 5 MG Tab PO PRN (18:51)
[2021-03-05] MEDS ORDERED: Glucose Gel 15 GM in 37.5 GM Tube PO PRN (18:51)
[2021-03-05] MEDS ORDERED: 50% Dextrose in Water 50 ML Syringe IV PRN (18:51)
[2021-03-05] MEDS ORDERED: Acetaminophen 325 MG Tab PO PRN (18:51)
[2021-03-05] MEDS: Sodium Chloride 0.9% 1,000 ML IV SCH (19:09)
[2021-03-05] MEDS: metroNIDAZOLE/Normal Saline 500 MG in Premix Bag 1 BAG IV SCH (19:09)
[2021-03-05] MEDS: Ciprofloxacin in D5W 400 MG in Premix Bag 1 BAG IV SCH ×2 (20:40)
[2021-03-05] MEDS ORDERED: Non-Formulary Medication 1 Each (Cyclosporine [Restasis] 1 EACH Amp) TOP SCH (21:00)
[2021-03-05] MEDS: Insulin Lispro 100 Unit/ML 3 ML KwikPen SUBCUT SCH (21:42)
[2021-03-05] MEDS: Rosuvastatin 10 MG Tab PO SCH (21:43)
[2021-03-05] MEDS ORDERED: Hypromellose 0.3% Ophth Soln 15 ML Bottle EYEBOTH PRN (21:45)
[2021-03-06] MEDS: metroNIDAZOLE/Normal Saline 500 MG in Premix Bag 1 BAG IV SCH ×3 (01:56→17:23)
[2021-03-06] MEDS: Ciprofloxacin in D5W 400 MG in Premix Bag 1 BAG IV SCH ×6 (03:28→19:59)
[2021-03-06] MEDS: Sodium Chloride 0.9% 1,000 ML IV SCH (07:06)
[2021-03-06] MEDS: Insulin Lispro 100 Unit/ML 3 ML KwikPen SUBCUT SCH ×4 (08:20→21:39)
[2021-03-06] MEDS: Diltiazem 180 MG Cap.CD PO SCH (08:24)
[2021-03-06] MEDS: Lisinopril 10 MG Tab PO SCH (08:24)
[2021-03-06] MEDS: Aspirin 81 MG Tab.EC PO SCH (08:24)
[2021-03-06] MEDS: Levothyroxine 112 MCG Tab PO SCH (08:25)
[2021-03-06] MEDS ORDERED: Potassium Chloride 20 MEQ Tab.ER PO ONE (08:30)
[2021-03-06] MEDS: Magnesium Oxide 400 MG Tab PO SCH ×2 (09:13→20:10)
[2021-03-06] MEDS: Magnesium Sulfate/Water 2 GM in Premix Bag 1 BAG IV SCH ×2 (09:13→14:25)
[2021-03-06] MEDS ORDERED: Sodium Chloride 0.9% 1,000 ML IV SCH (13:30)
[2021-03-06] MEDS: Lactobacillus Rhamnosus GG (Probiotic) Cap PO SCH ×2 (14:25→20:10)
--- NOTE | 2021-03-06 14:34 | PCM.PN ---
- General Info Date of Service: 03/06/21 Subjective Update: Ms. Welch has improved since admission, abdominal pain has essentially resolved. She continues to experience loose bloody stools during the night and this morning. Hemoglobin has remained fairly stable even with hydration. Functional Status: Reports: Tolerating Diet, Urinating - Review of Systems General: Reports: Weakness, Fatigue. Denies: Fever, Chills Pulmonary: Reports: No Symptoms Cardiovascular: Reports: No Symptoms Gastrointestinal: Reports: Diarrhea, Hematochezia. Denies: Abdominal Pain, Difficulty Swallowing, Melena, Nausea, Vomiting Genitourinary: Reports: No Symptoms - Patient Data Vitals - Most Recent: Last Vital Signs Temp 98.1 F 03/06/21 11:19 Pulse 87 03/06/21 11:19 Resp 18 03/06/21 11:19 BP 166/70 H 03/06/21 11:19 Pulse Ox 93 L 03/06/21 11:19 Weight - Most Recent: 172 lb 2.896 oz I&O - Last 24 Hours: Intake & Output 03/05/21 03/06/21 03/06/21 22:59 06:59 14:59 Intake Total 480 1021 1350 Output Total 100 975 700 Balance 380 46 650 Lab Results Last 24 Hours: Laboratory Results - last 24 hr 03/05/21 03/05/21 03/05/21 Range/Units 14:24 14:24 15:45 WBC (4.5-11.0) K/uL RBC (3.30-5.50) M/uL Hgb (12.0-15.0) g/dL Hct (36.0-48.0) % MCV (80-98) fL MCH (27-31) pg MCHC (32-36) % Plt Count (150-400) K/uL Neut % (Auto) (36-66) % Lymph % (Auto) (24-44) % [place] % (Auto) (2-6) % Eos % (Auto) (2-4) % Baso % (Auto) (0-1) % Sodium 135 L (140-148) mmol/L Potassium 4.8 (3.6-5.2) mmol/L Chloride 96 L (100-108) mmol/L Carbon Dioxide 22 (21-32) mmol/L Anion Gap 21.8 H (5.0-14.0) mmol/L BUN 13 (7-18) mg/dL Creatinine 1.0 (0.6-1.0) mg/dL Est Cr Clr Drug Dosing 38.35 mL/min Estimated GFR (MDRD) 54 L (>60) Glucose 279 H (74-106) mg/dL POC Glucose (74-106) mg/dL Calcium 9.5 (8.5-10.1) mg/dL Magnesium (1.8-2.4) mg/dL Total Bilirubin 0.4 (0.2-1.0) mg/dL AST 30 D (15-37) U/L ALT 39 D (12-78) U/L Alkaline Phosphatase 48 (46-116) U/L C-Reactive Protein 4.60 H (0.0-0.3) mg/dL Total Protein 7.3 (6.4-8.2) g/dL Albumin 3.8 (3.4-5.0) g/dL Globulin 3.5 (2.3-3.5) g/dL Albumin/Globulin Ratio 1.1 L (1.2-2.2) Urine Color Yellow (YELLOW) Urine Appearance Clear (CLEAR) Urine pH 6.5 (5.0-8.0) Ur Specific [place] 1.015 (1.008-1.030) Urine Protein Trace H (NEGATIVE) mg/dL Urine Glucose (UA) 500 H (NEGATIVE) mg/dL Urine Ketones Negative (NEGATIVE) mg/dL Urine Occult Blood Negative (NEGATIVE) Urine Nitrite Negative (NEGATIVE) Urine Bilirubin Negative (NEGATIVE) Urine Urobilinogen 0.2 (0.2-1.0) EU/dL Ur Leukocyte Esterase Negative (NEGATIVE) Urine RBC Not seen (0-5) Urine WBC Not seen (0-5) Ur Epithelial Cells Rare Amorphous Sediment Not seen Urine Bacteria Rare Urine Mucus Not seen SARS CoV-2 RNA Rapid CHANELL 03/05/21 03/05/21 03/05/21 Range/Units 16:15 20:59 21:05 WBC (4.5-11.0) K/uL RBC (3.30-5.50) M/uL Hgb 14.0 (12.0-15.0) g/dL Hct (36.0-48.0) % MCV (80-98) fL MCH (27-31) pg MCHC (32-36) % Plt Count (150-400) K/uL Neut % (Auto) (36-66) % Lymph % (Auto) (24-44) % [place] % (Auto) (2-6) % Eos % (Auto) (2-4) % Baso % (Auto) (0-1) % Sodium (140-148) mmol/L Potassium (3.6-5.2) mmol/L Chloride (100-108) mmol/L Carbon Dioxide (21-32) mmol/L Anion Gap (5.0-14.0) mmol/L BUN (7-18) mg/dL Creatinine (0.6-1.0) mg/dL Est Cr Clr Drug Dosing mL/min Estimated GFR (MDRD) (>60) Glucose (74-106) mg/dL POC Glucose 227 H (74-106) mg/dL Calcium (8.5-10.1) mg/dL Magnesium (1.8-2.4) mg/dL Total Bilirubin (0.2-1.0) mg/dL AST (15-37) U/L ALT (12-78) U/L Alkaline Phosphatase (46-116) U/L C-Reactive Protein (0.0-0.3) mg/dL Total Protein (6.4-8.2) g/dL Albumin (3.4-5.0) g/dL Globulin (2.3-3.5) g/dL Albumin/Globulin Ratio (1.2-2.2) Urine Color (YELLOW) Urine Appearance (CLEAR) Urine pH (5.0-8.0) Ur Specific [place] (1.008-1.030) Urine Protein (NEGATIVE) mg/dL Urine Glucose (UA) (NEGATIVE) mg/dL Urine Ketones (NEGATIVE) mg/dL Urine Occult Blood (NEGATIVE) Urine Nitrite (NEGATIVE) Urine Bilirubin (NEGATIVE) Urine Urobilinogen (0.2-1.0) EU/dL Ur Leukocyte Esterase (NEGATIVE) Urine RBC (0-5) Urine WBC (0-5) Ur Epithelial Cells Amorphous Sediment Urine Bacteria Urine Mucus SARS CoV-2 RNA Rapid CH[facility]LL Negative 03/06/21 03/06/21 03/06/21 Range/Units 05:50 05:50 07:31 WBC 15.1 H (4.5-11.0) K/uL RBC 4.46 (3.30-5.50) M/uL Hgb 13.4 (12.0-15.0) g/dL Hct 39.2 (36.0-48.0) % MCV 88 (80-98) fL MCH 30 (27-31) pg MCHC 34 (32-36) % Plt Count 269 (150-400) K/uL Neut % (Auto) 78.5 H (36-66) % Lymph % (Auto) 10.0 L (24-44) % [place] % (Auto) 11.0 H (2-6) % Eos % (Auto) 0.3 L (2-4) % Baso % (Auto) 0.2 (0-1) % Sodium 138 L (140-148) mmol/L Potassium 3.4 L (3.6-5.2) mmol/L Chloride 102 (100-108) mmol/L Carbon Dioxide 23 (21-32) mmol/L Anion Gap 16.4 H (5.0-14.0) mmol/L BUN 7 (7-18) mg/dL Creatinine 0.8 (0.6-1.0) mg/dL Est Cr Clr Drug Dosing 47.94 mL/min Estimated GFR (MDRD) > 60 (>60) Glucose 222 H (74-106) mg/dL POC Glucose 214 H (74-106) mg/dL Calcium 8.3 L (8.5-10.1) mg/dL Magnesium 1.4 L (1.8-2.4) mg/dL Total Bilirubin 0.4 (0.2-1.0) mg/dL AST 17 (15-37) U/L ALT 28 (12-78) U/L Alkaline Phosphatase 42 L (46-116) U/L C-Reactive Protein (0.0-0.3) mg/dL Total Protein 6.0 L (6.4-8.2) g/dL Albumin 3.0 L (3.4-5.0) g/dL Globulin 3.0 (2.3-3.5) g/dL Albumin/Globulin Ratio 1.0 L (1.2-2.2) Urine Color (YELLOW) Urine Appearance (CLEAR) Urine pH (5.0-8.0) Ur Specific [place] (1.008-1.030) Urine Protein (NEGATIVE) mg/dL Urine Glucose (UA) (NEGATIVE) mg/dL Urine Ketones (NEGATIVE) mg/dL Urine Occult Blood (NEGATIVE) Urine Nitrite (NEGATIVE) Urine Bilirubin (NEGATIVE) Urine Urobilinogen (0.2-1.0) EU/dL Ur Leukocyte Esterase (NEGATIVE) Urine RBC (0-5) Urine WBC (0-5) Ur Epithelial Cells Amorphous Sediment Urine Bacteria Urine Mucus SARS CoV-2 RNA Rapid CHANELL 03/06/21 Range/Units 11:44 WBC (4.5-11.0) K/uL RBC (3.30-5.50) M/uL Hgb (12.0-15.0) g/dL Hct (36.0-48.0) % MCV (80-98) fL MCH (27-31) pg MCHC (32-36) % Plt Count (150-400) K/uL Neut % (Auto) (36-66) % Lymph % (Auto) (24-44) % [place] % (Auto) (2-6) % Eos % (Auto) (2-4) % Baso % (Auto) (0-1) % Sodium (140-148) mmol/L Potassium (3.6-5.2) mmol/L Chloride (100-108) mmol/L Carbon Dioxide (21-32) mmol/L Anion Gap (5.0-14.0) mmol/L BUN (7-18) mg/dL Creatinine (0.6-1.0) mg/dL Est Cr Clr Drug Dosing mL/min Estimated GFR (MDRD) (>60) Glucose (74-106) mg/dL POC Glucose 180 H (74-106) mg/dL Calcium (8.5-10.1) mg/dL Magnesium (1.8-2.4) mg/dL Total Bilirubin (0.2-1.0) mg/dL AST (15-37) U/L ALT (12-78) U/L Alkaline Phosphatase (46-116) U/L C-Reactive Protein (0.0-0.3) mg/dL Total Protein (6.4-8.2) g/dL Albumin (3.4-5.0) g/dL Globulin (2.3-3.5) g/dL Albumin/Globulin Ratio (1.2-2.2) Urine Color (YELLOW) Urine Appearance (CLEAR) Urine pH (5.0-8.0) Ur Specific [place] (1.008-1.030) Urine Protein (NEGATIVE) mg/dL Urine Glucose (UA) (NEGATIVE) mg/dL Urine Ketones (NEGATIVE) mg/dL Urine Occult Blood (NEGATIVE) Urine Nitrite (NEGATIVE) Urine Bilirubin (NEGATIVE) Urine Urobilinogen (0.2-1.0) EU/dL Ur Leukocyte Esterase (NEGATIVE) Urine RBC (0-5) Urine WBC (0-5) Ur Epithelial Cells Amorphous Sediment Urine Bacteria Urine Mucus SARS CoV-2 RNA Rapid CHANELL Med Orders - Current: Current Medications Acetaminophen (Acetaminophen 325 Mg Tab) 650 mg PO Q4H PRN PRN Reason: Pain (Mild 1-3)/fever Artificial Tears (Hypromellose 0.3% Ophth Soln 15 Ml Bottle) 0 ml EYEBOTH QID P RN PRN Reason: Dry Eyes Aspirin (Aspirin 81 Mg Tab.Ec) 162 mg PO DAILY [facility] Last Admin: 03/06/21 08:24 Dose: 162 mg Documented by: Dextrose (Glucose Gel 15 Gm In 37.5 Gm Tube) 15 gm PO ONETIME PRN PRN Reason: Hypoglycemia Dextrose/Water (50% Dextrose In Water 50 Ml Syringe) 50 ml IV ONETIME PRN PRN Reason: Hypoglycemia Diltiazem HCl (Diltiazem 180 Mg Cap.Cd) 360 mg PO DAILY [facility] Last Admin: 03/06/21 08:24 Dose: 360 mg Documented by: Metronidazole 500 mg/ Premix 100 mls @ 100 mls/hr IV Q8H [facility] Last Admin: 03/06/21 11:14 Dose: 100 mls/hr Documented by: Ciprofloxacin/Dextrose 400 mg/ (Premix) 200 mls @ 200 mls/hr IV Q8H [facility] Last Admin: 03/06/21 12:19 Dose: 200 mls/hr Documented by: Magnesium Sulfate 2 gm/ Premix 50 mls @ 25 mls/hr IV Q6H [facility] Stop: 03/06/21 16:59 Last Admin: 03/06/21 14:25 Dose: 25 mls/hr Documented by: Sodium Chloride (Normal Saline) 1,000 mls @ 50 mls/hr IV ASDIRECTED [facility] Insulin Human Lispro (Insulin Lispro 100 Unit/Ml 3 Ml Kwikpen) 0 unit SUBCUT QIDACANDBED [facility]; Protocol Last Admin: 03/06/21 12:06 Dose: 1 units Documented by: Lactobacillus Rhamnosus (Lactobacillus Rhamnosus Gg (Probiotic) Cap) 1 cap PO BID [facility] Last Admin: 03/06/21 14:25 Dose: 1 cap Documented by: Levothyroxine Sodium (Levothyroxine 112 Mcg Tab) 112 mcg PO ACBREAKFAST [facility] Last Admin: 03/06/21 08:25 Dose: 112 mcg Documented by: Lisinopril (Lisinopril 10 Mg Tab) 10 mg PO DAILY [facility] Last Admin: 03/06/21 08:24 Dose: 10 mg Documented by: Magnesium Oxide (Magnesium Oxide 400 Mg Tab) 400 mg PO BID [facility] Last Admin: 03/06/21 09:13 Dose: 400 mg Documented by: Ondansetron HCl (Ondansetron 4 Mg/2 Ml Sdv) 4 mg IV Q4H PRN PRN Reason: Nausea/Vomiting Oxycodone HCl (Oxycodone 5 Mg Tab) 5 mg PO Q4H PRN PRN Reason: Pain (moderate 4-6) Rosuvastatin Calcium (Rosuvastatin 10 Mg Tab) 5 mg PO BEDTIME [facility] Last Admin: 03/05/21 21:43 Dose: 5 mg Documented by: Sodium Chloride (Sodium Chloride 0.9% 10 Ml Syringe) 10 ml FLUSH ASDIRECTED PRN PRN Reason: Keep Vein Open Discontinued Medications Hydromorphone HCl (Hydromorphone 0.5 Mg/0.5 Ml Syringe) 0.5 mg IVPUSH ONETIME ONE Stop: 03/05/21 14:12 Last Admin: 03/05/21 14:27 Dose: 0.5 mg Documented by: Sodium Chloride (Normal Saline) 1,000 mls @ 999 mls/hr IV ASDIRECTED [facility] Last Admin: 03/05/21 14:27 Dose: 999 mls/hr Documented by: Sodium Chloride (Normal Saline) 80 mls @ 3 mls/sec IV ASDIRECTED [facility] Last Admin: 03/05/21 15:37 Dose: 3 mls/sec Documented by: Sodium Chloride (Normal Saline) 1,000 mls @ 250 mls/hr IV ASDIRECTED [facility] Ciprofloxacin/Dextrose 400 mg/ (Premix) 200 mls @ 200 mls/hr IV Q8H [facility] Last Admin: 03/06/21 03:28 Dose: 200 mls/hr Documented by: Metronidazole 500 mg/ Premix 100 mls @ 100 mls/hr IV Q8H [facility] Last Admin: 03/06/21 01:56 Dose: 100 mls/hr Documented by: Sodium Chloride (Normal Saline) 1,000 mls @ 125 mls/hr IV ASDIRECTED [facility] Last Admin: 03/06/21 07:06 Dose: 125 mls/hr Documented by: Iopamidol (Iopamidol 612 Mg/Ml 150 Ml Bottle) 119 ml IV . DIRECTED [facility] Last Admin: 03/05/21 15:37 Dose: 119 ml Documented by: Ondansetron HCl (Ondansetron 4 Mg/2 Ml Sdv) 4 mg IVPUSH ONETIME ONE Stop: 03/05/21 14:11 Last Admin: 03/05/21 14:27 Dose: 4 mg Documented by: Potassium Chloride (Potassium Chloride 20 Meq Tab.Er) 40 meq PO ONETIME ONE Stop: 03/06/21 08:31 Last Admin: 03/06/21 08:27 Dose: 40 meq Documented by: Sodium Chloride (Sodium Chloride 0.9% 10 Ml Syringe) 10 ml FLUSH ASDIRECTED PRN PRN Reason: Keep Vein Open Last Admin: 03/05/21 15:37 Dose: 10 ml Documented by: - Exam Quality Assessment: DVT Prophylaxis General: Alert, Oriented, Cooperative, Mild Distress Lungs: Clear to Auscultation, Normal Respiratory Effort Cardiovascular: Regular Rate, Regular Rhythm, No Murmurs GI/Abdominal Exam: Soft, Non-Tender, No Organomegaly, No Distention Extremities: Non-Tender, No Pedal Edema - Patient Data Lab Results Last 24 hrs: Laboratory Results - last 24 hr 03/05/21 03/05/21 03/05/21 Range/Units 14:24 14:24 15:45 WBC (4.5-11.0) K/uL RBC (3.30-5.50) M/uL Hgb (12.0-15.0) g/dL Hct (36.0-48.0) % MCV (80-98) fL MCH (27-31) pg MCHC (32-36) % Plt Count (150-400) K/uL Neut % (Auto) (36-66) % Lymph % (Auto) (24-44) % [place] % (Auto) (2-6) % Eos % (Auto) (2-4) % Baso % (Auto) (0-1) % Sodium 135 L (140-148) mmol/L Potassium 4.8 (3.6-5.2) mmol/L Chloride 96 L (100-108) mmol/L Carbon Dioxide 22 (21-32) mmol/L Anion Gap 21.8 H (5.0-14.0) mmol/L BUN 13 (7-18) mg/dL Creatinine 1.0 (0.6-1.0) mg/dL Est Cr Clr Drug Dosing 38.35 mL/min Estimated GFR (MDRD) 54 L (>60) Glucose 279 H (74-106) mg/dL POC Glucose (74-106) mg/dL Calcium 9.5 (8.5-10.1) mg/dL Magnesium (1.8-2.4) mg/dL Total Bilirubin 0.4 (0.2-1.0) mg/dL AST 30 D (15-37) U/L ALT 39 D (12-78) U/L Alkaline Phosphatase 48 (46-116) U/L C-Reactive Protein 4.60 H (0.0-0.3) mg/dL Total Protein 7.3 (6.4-8.2) g/dL Albumin 3.8 (3.4-5.0) g/dL Globulin 3.5 (2.3-3.5) g/dL Albumin/Globulin Ratio 1.1 L (1.2-2.2) Urine Color Yellow (YELLOW) Urine Appearance Clear (CLEAR) Urine pH 6.5 (5.0-8.0) Ur Specific [place] 1.015 (1.008-1.030) Urine Protein Trace H (NEGATIVE) mg/dL Urine Glucose (UA) 500 H (NEGATIVE) mg/dL Urine Ketones Negative (NEGATIVE) mg/dL Urine Occult Blood Negative (NEGATIVE) Urine Nitrite Negative (NEGATIVE) Urine Bilirubin Negative (NEGATIVE) Urine Urobilinogen 0.2 (0.2-1.0) EU/dL Ur Leukocyte Esterase Negative (NEGATIVE) Urine RBC Not seen (0-5) Urine WBC Not seen (0-5) Ur Epithelial Cells Rare Amorphous Sediment Not seen Urine Bacteria Rare Urine Mucus Not seen SARS CoV-2 RNA Rapid [facility] 03/05/21 03/05/21 03/05/21 Range/Units 16:15 20:59 21:05 WBC (4.5-11.0) K/uL RBC (3.30-5.50) M/uL Hgb 14.0 (12.0-15.0) g/dL Hct (36.0-48.0) % MCV (80-98) fL MCH (27-31) pg MCHC (32-36) % Plt Count (150-400) K/uL Neut % (Auto) (36-66) % Lymph % (Auto) (24-44) % [place] % (Auto) (2-6) % Eos % (Auto) (2-4) % Baso % (Auto) (0-1) % Sodium (140-148) mmol/L Potassium (3.6-5.2) mmol/L Chloride (100-108) mmol/L Carbon Dioxide (21-32) mmol/L Anion Gap (5.0-14.0) mmol/L BUN (7-18) mg/dL Creatinine (0.6-1.0) mg/dL Est Cr Clr Drug Dosing mL/min Estimated GFR (MDRD) (>60) Glucose (74-106) mg/dL POC Glucose 227 H (74-106) mg/dL Calcium (8.5-10.1) mg/dL Magnesium (1.8-2.4) mg/dL Total Bilirubin (0.2-1.0) mg/dL AST (15-37) U/L ALT (12-78) U/L Alkaline Phosphatase (46-116) U/L C-Reactive Protein (0.0-0.3) mg/dL Total Protein (6.4-8.2) g/dL Albumin (3.4-5.0) g/dL Globulin (2.3-3.5) g/dL Albumin/Globulin Ratio (1.2-2.2) Urine Color (YELLOW) Urine Appearance (CLEAR) Urine pH (5.0-8.0) Ur Specific [place] (1.008-1.030) Urine Protein (NEGATIVE) mg/dL Urine Glucose (UA) (NEGATIVE) mg/dL Urine Ketones (NEGATIVE) mg/dL Urine Occult Blood (NEGATIVE) Urine Nitrite (NEGATIVE) Urine Bilirubin (NEGATIVE) Urine Urobilinogen (0.2-1.0) EU/dL Ur Leukocyte Esterase (NEGATIVE) Urine RBC (0-5) Urine WBC (0-5) Ur Epithelial Cells Amorphous Sediment Urine Bacteria Urine Mucus SARS CoV-2 RNA Rapid [facility] Negative 03/06/21 03/06/21 03/06/21 Range/Units 05:50 05:50 07:31 WBC 15.1 H (4.5-11.0) K/uL RBC 4.46 (3.30-5.50) M/uL Hgb 13.4 (12.0-15.0) g/dL Hct 39.2 (36.0-48.0) % MCV 88 (80-98) fL MCH 30 (27-31) pg MCHC 34 (32-36) % Plt Count 269 (150-400) K/uL Neut % (Auto) 78.5 H (36-66) % Lymph % (Auto) 10.0 L (24-44) % [place] % (Auto) 11.0 H (2-6) % Eos % (Auto) 0.3 L (2-4) % Baso % (Auto) 0.2 (0-1) % Sodium 138 L (140-148) mmol/L Potassium 3.4 L (3.6-5.2) mmol/L Chloride 102 (100-108) mmol/L Carbon Dioxide 23 (21-32) mmol/L Anion Gap 16.4 H (5.0-14.0) mmol/L BUN 7 (7-18) mg/dL Creatinine 0.8 (0.6-1.0) mg/dL Est Cr Clr Drug Dosing 47.94 mL/min Estimated GFR (MDRD) > 60 (>60) Glucose 222 H (74-106) mg/dL POC Glucose 214 H (74-106) mg/dL Calcium 8.3 L (8.5-10.1) mg/dL Magnesium 1.4 L (1.8-2.4) mg/dL Total Bilirubin 0.4 (0.2-1.0) mg/dL AST 17 (15-37) U/L ALT 28 (12-78) U/L Alkaline Phosphatase 42 L (46-116) U/L C-Reactive Protein (0.0-0.3) mg/dL Total Protein 6.0 L (6.4-8.2) g/dL Albumin 3.0 L (3.4-5.0) g/dL Globulin 3.0 (2.3-3.5) g/dL Albumin/Globulin Ratio 1.0 L (1.2-2.2) Urine Color (YELLOW) Urine Appearance (CLEAR) Urine pH (5.0-8.0) Ur Specific [place] (1.008-1.030) Urine Protein (NEGATIVE) mg/dL Urine Glucose (UA) (NEGATIVE) mg/dL Urine Ketones (NEGATIVE) mg/dL Urine Occult Blood (NEGATIVE) Urine Nitrite (NEGATIVE) Urine Bilirubin (NEGATIVE) Urine Urobilinogen (0.2-1.0) EU/dL Ur Leukocyte Esterase (NEGATIVE) Urine RBC (0-5) Urine WBC (0-5) Ur Epithelial Cells Amorphous Sediment Urine Bacteria Urine Mucus SARS CoV-2 RNA Rapid [facility] 03/06/21 Range/Units 11:44 WBC (4.5-11.0) K/uL RBC (3.30-5.50) M/uL Hgb (12.0-15.0) g/dL Hct (36.0-48.0) % MCV (80-98) fL MCH (27-31) pg MCHC (32-36) % Plt Count (150-400) K/uL Neut % (Auto) (36-66) % Lymph % (Auto) (24-44) % [place] % (Auto) (2-6) % Eos % (Auto) (2-4) % Baso % (Auto) (0-1) % Sodium (140-148) mmol/L Potassium (3.6-5.2) mmol/L Chloride (100-108) mmol/L Carbon Dioxide (21-32) mmol/L Anion Gap (5.0-14.0) mmol/L BUN (7-18) mg/dL Creatinine (0.6-1.0) mg/dL Est Cr Clr Drug Dosing mL/min Estimated GFR (MDRD) (>60) Glucose (74-106) mg/dL POC Glucose 180 H (74-106) mg/dL Calcium (8.5-10.1) mg/dL Magnesium (1.8-2.4) mg/dL Total Bilirubin (0.2-1.0) mg/dL AST (15-37) U/L ALT (12-78) U/L Alkaline Phosphatase (46-116) U/L C-Reactive Protein (0.0-0.3) mg/dL Total Protein (6.4-8.2) g/dL Albumin (3.4-5.0) g/dL Globulin (2.3-3.5) g/dL Albumin/Globulin Ratio (1.2-2.2) Urine Color (YELLOW) Urine Appearance (CLEAR) Urine pH (5.0-8.0) Ur Specific [place] (1.008-1.030) Urine Protein (NEGATIVE) mg/dL Urine Glucose (UA) (NEGATIVE) mg/dL Urine Ketones (NEGATIVE) mg/dL Urine Occult Blood (NEGATIVE) Urine Nitrite (NEGATIVE) Urine Bilirubin (NEGATIVE) Urine Urobilinogen (0.2-1.0) EU/dL Ur Leukocyte Esterase (NEGATIVE) Urine RBC (0-5) Urine WBC (0-5) Ur Epithelial Cells Amorphous Sediment Urine Bacteria Urine Mucus SARS CoV-2 RNA Rapid [facility] Result Diagrams: 03/06/21 05:50 03/06/21 05:50 Sepsis Event Note - Evaluation Sepsis Screening Result: No Definite Risk - Focused Exam Vital Signs: Vital Signs Temp Pulse Resp BP BP Pulse Ox 03/06/21 11:19 98.1 F 87 18 166/70 H 93 L 03/06/21 08:24 171/88 H 03/06/21 07:10 98.1 F 110 H 18 171/88 H 93 L - Problem List Review Problem List Initiated/Reviewed/Updated: Yes - My Orders Last 24 Hours: My Active Orders 03/05/21 Dinner Clear Liquid Diet [DIET] 03/05/21 18:16 Resuscitation Status Routine 03/05/21 18:51 Acetaminophen [TylenoL] 650 mg PO Q4H PRN Dextrose 50% in Water 50 ml IV ONETIME PRN Dextrose [Glutose 15] 15 gm PO ONETIME PRN Ondansetron [Zofran] 4 mg IV Q4H PRN Sodium Chloride 0.9% [Saline Flush] 10 ml FLUSH ASDIRECTED PRN oxyCODONE 5 mg PO Q4H PRN 03/05/21 18:51 Patient Status [ADT] Routine Ambulate [RC] QID Communication Order [RC] STAT Diabetes Education [RC] Click to Edit Height and Weight [RC] DAILY Intake and Output [RC] QSHIFT Notify Provider Vital Signs [RC] ASDIRECTED Notify Provider [RC] PRN Oxygen Therapy [RC] PRN Up With Assistance [RC] ASDIRECTED Up to Chair [RC] QID Vital Signs [RC] Q4H Peripheral IV Insertion Adult [OM.PC] Routine Sequential Compression Device [OM.PC] Per Unit Routine VTE Pharmacological Contraindications [AST] Per Unit Routine 03/05/21 20:00 Insulin Lispro [HumaLOG] See Protocol SUBCUT QIDACANDBED 03/05/21 21:00 Rosuvastatin [Crestor] 5 mg PO BEDTIME 03/05/21 21:45 Hypromellose [GenTeal Mild to Moderate Ophth Soln] 0 ml EYEBOTH QID PRN 03/06/21 09:00 Aspirin [Halfprin] 162 mg PO DAILY Diltiazem [Cardizem CD] 360 mg PO DAILY Levothyroxine 112 mcg PO ACBREAKFAST Magnesium Oxide 400 mg PO BID Magnesium Sulfate/Water [Magnesium Sulfate in Water 2 GM/50 ML] 2 gm Premix Bag 1 bag IV Q6H lisinopriL [Prinivil] 10 mg PO DAILY 03/06/21 10:00 metroNIDAZOLE/Normal Saline [Flagyl in NS 500 MG/100 ML] 500 mg Premix Bag 1 bag IV Q8H 03/06/21 12:00 Ciprofloxacin in D5W [Cipro in D5W 400 MG/200 ML] 400 mg Premix Bag 1 bag IV Q8H 03/06/21 13:30 Lactobacillus Rhamnosus GG [Culturelle] 1 cap PO BID Sodium Chloride 0.9% [Normal Saline] 1,000 ml IV ASDIRECTED 03/06/21 16:30 GLUCOSE POC LAB TO COLLECT JPM [POC] QIDACANDBED 03/06/21 21:00 GLUCOSE POC LAB TO COLLECT JPM [POC] QIDACANDBED 03/07/21 05:00 BASIC METABOLIC PANEL,BMP [CHEM] Timed CBC WITH AUTO DIFF [HEME] Timed MAGNESIUM [CHEM] Timed 03/07/21 07:30 GLUCOSE POC LAB TO COLLECT JPM [POC] QIDACANDBED 03/07/21 11:30 GLUCOSE POC LAB TO COLLECT JPM [POC] QIDACANDBED 03/07/21 16:30 GLUCOSE POC LAB TO COLLECT JPM [POC] QIDACANDBED 03/07/21 21:00 GLUCOSE POC LAB TO COLLECT JPM [POC] QIDACANDBED 03/08/21 07:30 GLUCOSE POC LAB TO COLLECT JPM [POC] QIDACANDBED 03/08/21 11:30 GLUCOSE POC LAB TO COLLECT JPM [POC] QIDACANDBED 03/08/21 16:30 GLUCOSE POC LAB TO COLLECT JPM [POC] QIDACANDBED 03/08/21 21:00 GLUCOSE POC LAB TO COLLECT JPM [POC] QIDACANDBED 03/09/21 07:30 GLUCOSE POC LAB TO COLLECT JPM [POC] QIDACANDBED 03/09/21 11:30 GLUCOSE POC LAB TO COLLECT JPM [POC] QIDACANDBED 03/09/21 16:30 GLUCOSE POC LAB TO COLLECT JPM [POC] QIDACANDBED 03/09/21 21:00 GLUCOSE POC LAB TO COLLECT JPM [POC] QIDACANDBED 03/10/21 07:30 GLUCOSE POC LAB TO COLLECT JPM [POC] QIDACANDBED 03/10/21 11:30 GLUCOSE POC LAB TO COLLECT JPM [POC] QIDACANDBED 03/10/21 16:30 GLUCOSE POC LAB TO COLLECT JPM [POC] QIDACANDBED - Plan Plan:: ASSESSMENT AND PLAN INFECTIOUS COLITIS-pain has resolved with current management, she continues to experience bloody loose stools -Clear liquid diet -IV fluids for hydration, decrease IV rate to 50 cc/h -Pain and nausea medication as needed -IV ciprofloxacin and Flagyl HYPERTENSION -Continue outpatient medications HYPOTHYROIDISM -Continue outpatient thyroid replacement MAINTENANCE ISSUES -DVT prophylaxis; SCUDs, hold on anticoagulation because of bleeding -GI prophylaxis; not indicated -Angeles catheter; not indicated -Nutrition; clear liquid diet -Nicotine dependence; not required CODE STATUS-FULL CODE ADMISSION STATUS-patient will be admitted to inpatient status, expect at least a 2 night hospital stay for evaluation and management of problems as outlined above. At the time of this admission I do not reasonably expected evaluation and management of this problem will require more than a 96 hour hospital stay. DISPOSITION-anticipate discharge to home after the hospital stay. PRIMARY CARE PROVIDER-Dr. Ro
[2021-03-06] MEDS: Rosuvastatin 10 MG Tab PO SCH (20:10)
[2021-03-07] MEDS: metroNIDAZOLE/Normal Saline 500 MG in Premix Bag 1 BAG IV SCH ×2 (01:00→11:15)
[2021-03-07] MEDS: Ciprofloxacin in D5W 400 MG in Premix Bag 1 BAG IV SCH ×2 (04:30)
[2021-03-07] MEDS: Levothyroxine 112 MCG Tab PO SCH (07:45)
[2021-03-07] MEDS: Insulin Lispro 100 Unit/ML 3 ML KwikPen SUBCUT SCH ×4 (07:45→20:56)
[2021-03-07] MEDS: Lactobacillus Rhamnosus GG (Probiotic) Cap PO SCH ×2 (08:45→20:58)
[2021-03-07] MEDS: Lisinopril 10 MG Tab PO SCH (08:45)
[2021-03-07] MEDS: Magnesium Oxide 400 MG Tab PO SCH ×2 (08:45→20:58)
[2021-03-07] MEDS: Aspirin 81 MG Tab.EC PO SCH (08:45)
[2021-03-07] MEDS: Diltiazem 180 MG Cap.CD PO SCH (08:47)
[2021-03-07] MEDS ORDERED: Magnesium Sulfate/Water 2 GM in Premix Bag 1 BAG IV SCH (09:00)
--- NOTE | 2021-03-07 11:18 | PCM.PN ---
- General Info Date of Service: 03/07/21 Subjective Update: Ms. Welch has experienced further improvement since yesterday, abdominal pain has essentially resolved. Rare semiformed bowel movements with minimal blood. Functional Status: Reports: Tolerating Diet, Ambulating, Urinating - Review of Systems General: Reports: No Symptoms Pulmonary: Reports: No Symptoms Cardiovascular: Reports: No Symptoms Gastrointestinal: Reports: No Symptoms Genitourinary: Reports: No Symptoms - Patient Data Vitals - Most Recent: Last Vital Signs Temp 97.7 F 03/07/21 07:00 Pulse 78 03/07/21 07:00 Resp 16 03/07/21 07:00 BP 164/68 H 03/07/21 08:45 Pulse Ox 95 03/07/21 07:00 Weight - Most Recent: 178 lb 5.663 oz I&O - Last 24 Hours: Intake & Output 03/06/21 03/07/21 03/07/21 22:59 06:59 14:59 Intake Total 2398 948 600 Output Total 700 700 Balance 1698 248 600 Lab Results Last 24 Hours: Laboratory Results - last 24 hr 03/06/21 03/06/21 03/06/21 Range/Units 11:44 16:16 20:49 WBC (4.5-11.0) K/uL RBC (3.30-5.50) M/uL Hgb (12.0-15.0) g/dL Hct (36.0-48.0) % MCV (80-98) fL MCH (27-31) pg MCHC (32-36) % Plt Count (150-400) K/uL Neut % (Auto) (36-66) % Lymph % (Auto) (24-44) % [place] % (Auto) (2-6) % Eos % (Auto) (2-4) % Baso % (Auto) (0-1) % Sodium (140-148) mmol/L Potassium (3.6-5.2) mmol/L Chloride (100-108) mmol/L Carbon Dioxide (21-32) mmol/L Anion Gap (5.0-14.0) mmol/L BUN (7-18) mg/dL Creatinine (0.6-1.0) mg/dL Est Cr Clr Drug Dosing mL/min Estimated GFR (MDRD) (>60) Glucose (74-106) mg/dL POC Glucose 180 H 168 H 185 H (74-106) mg/dL Calcium (8.5-10.1) mg/dL Magnesium (1.8-2.4) mg/dL 03/07/21 03/07/21 03/07/21 Range/Units 05:11 05:11 07:24 WBC 15.1 H (4.5-11.0) K/uL RBC 4.21 (3.30-5.50) M/uL Hgb 12.3 (12.0-15.0) g/dL Hct 37.8 (36.0-48.0) % MCV 90 (80-98) fL MCH 29 (27-31) pg MCHC 33 (32-36) % Plt Count 242 (150-400) K/uL Neut % (Auto) 79.8 H (36-66) % Lymph % (Auto) 10.2 L (24-44) % [place] % (Auto) 8.9 H (2-6) % Eos % (Auto) 0.9 L (2-4) % Baso % (Auto) 0.2 (0-1) % Sodium 138 L (140-148) mmol/L Potassium 3.7 (3.6-5.2) mmol/L Chloride 105 (100-108) mmol/L Carbon Dioxide 24 (21-32) mmol/L Anion Gap 12.7 (5.0-14.0) mmol/L BUN 4 L (7-18) mg/dL Creatinine 0.7 (0.6-1.0) mg/dL Est Cr Clr Drug Dosing 54.79 mL/min Estimated GFR (MDRD) > 60 (>60) Glucose 229 H (74-106) mg/dL POC Glucose 178 H (74-106) mg/dL Calcium 8.0 L (8.5-10.1) mg/dL Magnesium 1.7 L (1.8-2.4) mg/dL Med Orders - Current: Current Medications Acetaminophen (Acetaminophen 325 Mg Tab) 650 mg PO Q4H PRN PRN Reason: Pain (Mild 1-3)/fever Artificial Tears (Hypromellose 0.3% Ophth Soln 15 Ml Bottle) 0 ml EYEBOTH QID PRN PRN Reason: Dry Eyes Aspirin (Aspirin 81 Mg Tab.Ec) 162 mg PO DAILY [facility] Last Admin: 03/07/21 08:45 Dose: 162 mg Documented by: Ciprofloxacin (Ciprofloxacin 500 Mg Tab) 500 mg PO BID [facility] Dextrose (Glucose Gel 15 Gm In 37.5 Gm Tube) 15 gm PO ONETIME PRN PRN Reason: Hypoglycemia Dextrose/Water (50% Dextrose In Water 50 Ml Syringe) 50 ml IV ONETIME PRN PRN Reason: Hypoglycemia Diltiazem HCl (Diltiazem 180 Mg Cap.Cd) 360 mg PO DAILY [facility] Last Admin: 03/07/21 08:47 Dose: 360 mg Documented by: Insulin Human Lispro (Insulin Lispro 100 Unit/Ml 3 Ml Kwikpen) 0 unit SUBCUT Q IDACANDBED [facility]; Protocol Last Admin: 03/07/21 07:45 Dose: 1 units Documented by: Lactobacillus Rhamnosus (Lactobacillus Rhamnosus Gg (Probiotic) Cap) 1 cap PO BID [facility] Last Admin: 03/07/21 08:45 Dose: 1 cap Documented by: Levothyroxine Sodium (Levothyroxine 112 Mcg Tab) 112 mcg PO ACBREAKFAST [facility] Last Admin: 03/07/21 07:45 Dose: 112 mcg Documented by: Lisinopril (Lisinopril 10 Mg Tab) 10 mg PO DAILY [facility] Last Admin: 03/07/21 08:45 Dose: 10 mg Documented by: Magnesium Oxide (Magnesium Oxide 400 Mg Tab) 400 mg PO BID [facility] Last Admin: 03/07/21 08:45 Dose: 400 mg Documented by: Metronidazole (Metronidazole 250 Mg Tab) 250 mg PO Q6H [facility] Ondansetron HCl (Ondansetron 4 Mg/2 Ml Sdv) 4 mg IV Q4H PRN PRN Reason: Nausea/Vomiting Oxycodone HCl (Oxycodone 5 Mg Tab) 5 mg PO Q4H PRN PRN Reason: Pain (moderate 4-6) Rosuvastatin Calcium (Rosuvastatin 10 Mg Tab) 5 mg PO BEDTIME [facility] Last Admin: 03/06/21 20:10 Dose: 5 mg Documented by: Sodium Chloride (Sodium Chloride 0.9% 10 Ml Syringe) 10 ml FLUSH ASDIRECTED PRN PRN Reason: Keep Vein Open Discontinued Medications Hydromorphone HCl (Hydromorphone 0.5 Mg/0.5 Ml Syringe) 0.5 mg IVPUSH ONETIME ONE Stop: 03/05/21 14:12 Last Admin: 03/05/21 14:27 Dose: 0.5 mg Documented by: Sodium Chloride (Normal Saline) 1,000 mls @ 999 mls/hr IV ASDIRECTED [facility] Last Admin: 03/05/21 14:27 Dose: 999 mls/hr Documented by: Sodium Chloride (Normal Saline) 80 mls @ 3 mls/sec IV ASDIRECTED [facility] Last Admin: 03/05/21 15:37 Dose: 3 mls/sec Documented by: Sodium Chloride (Normal Saline) 1,000 mls @ 250 mls/hr IV ASDIRECTED [facility] Ciprofloxacin/Dextrose 400 mg/ (Premix) 200 mls @ 200 mls/hr IV Q8H [facility] Last Admin: 03/06/21 03:28 Dose: 200 mls/hr Documented by: Metronidazole 500 mg/ Premix 100 mls @ 100 mls/hr IV Q8H [facility] Last Admin: 03/06/21 01:56 Dose: 100 mls/hr Documented by: Sodium Chloride (Normal Saline) 1,000 mls @ 125 mls/hr IV ASDIRECTED [facility] Last Admin: 03/06/21 07:06 Dose: 125 mls/hr Documented by: Metronidazole 500 mg/ Premix 100 mls @ 100 mls/hr IV Q8H [facility] Last Admin: 03/07/21 01:00 Dose: 100 mls/hr Documented by: Ciprofloxacin/Dextrose 400 mg/ (Premix) 200 mls @ 200 mls/hr IV Q8H [facility] Last Admin: 03/07/21 04:30 Dose: 200 mls/hr Documented by: Magnesium Sulfate 2 gm/ Premix 50 mls @ 25 mls/hr IV Q6H [facility] Stop: 03/06/21 16:59 Last Admin: 03/06/21 14:25 Dose: 25 mls/hr Documented by: Sodium Chloride (Normal Saline) 1,000 mls @ 50 mls/hr IV ASDIRECTED [facility] Last Admin: 03/07/21 00:56 Dose: 50 mls/hr Documented by: Magnesium Sulfate 2 gm/ Premix 50 mls @ 25 mls/hr IV Q6H [facility] Stop: 03/07/21 10:59 Last Admin: 03/07/21 08:50 Dose: 25 mls/hr Documented by: Iopamidol (Iopamidol 612 Mg/Ml 150 Ml Bottle) 119 ml IV . DIRECTED [facility] Last Admin: 03/05/21 15:37 Dose: 119 ml Documented by: Ondansetron HCl (Ondansetron 4 Mg/2 Ml Sdv) 4 mg IVPUSH ONETIME ONE Stop: 03/05/21 14:11 Last Admin: 03/05/21 14:27 Dose: 4 mg Documented by: Potassium Chloride (Potassium Chloride 20 Meq Tab.Er) 40 meq PO ONETIME ONE Stop: 03/06/21 08:31 Last Admin: 03/06/21 08:27 Dose: 40 meq Documented by: Sodium Chloride (Sodium Chloride 0.9% 10 Ml Syringe) 10 ml FLUSH ASDIRECTED PRN PRN Reason: Keep Vein Open Last Admin: 03/05/21 15:37 Dose: 10 ml Documented by: - Exam Quality Assessment: DVT Prophylaxis General: Alert, Oriented, Cooperative, Mild Distress Lungs: Clear to Auscultation, Normal Respiratory Effort Cardiovascular: Regular Rate, Regular Rhythm, No Murmurs GI/Abdominal Exam: Soft, No Organomegaly, Tender. No: Distended, Guarding, Rigid, Rebound Extremities: Non-Tender, No Pedal Edema - Patient Data Lab Results Last 24 hrs: Laboratory Results - last 24 hr 03/06/21 03/06/21 03/06/21 Range/Units 11:44 16:16 20:49 WBC (4.5-11.0) K/uL RBC (3.30-5.50) M/uL Hgb (12.0-15.0) g/dL Hct (36.0-48.0) % MCV (80-98) fL MCH (27-31) pg MCHC (32-36) % Plt Count (150-400) K/uL Neut % (Auto) (36-66) % Lymph % (Auto) (24-44) % [place] % (Auto) (2-6) % Eos % (Auto) (2-4) % Baso % (Auto) (0-1) % Sodium (140-148) mmol/L Potassium (3.6-5.2) mmol/L Chloride (100-108) mmol/L Carbon Dioxide (21-32) mmol/L Anion Gap (5.0-14.0) mmol/L BUN (7-18) mg/dL Creatinine (0.6-1.0) mg/dL Est Cr Clr Drug Dosing mL/min Estimated GFR (MDRD) (>60) Glucose (74-106) mg/dL POC Glucose 180 H 168 H 185 H (74-106) mg/dL Calcium (8.5-10.1) mg/dL Magnesium (1.8-2.4) mg/dL 03/07/21 03/07/21 03/07/21 Range/Units 05:11 05:11 07:24 WBC 15.1 H (4.5-11.0) K/uL RBC 4.21 (3.30-5.50) M/uL Hgb 12.3 (12.0-15.0) g/dL Hct 37.8 (36.0-48.0) % MCV 90 (80-98) fL MCH 29 (27-31) pg MCHC 33 (32-36) % Plt Count 242 (150-400) K/uL Neut % (Auto) 79.8 H (36-66) % Lymph % (Auto) 10.2 L (24-44) % [place] % (Auto) 8.9 H (2-6) % Eos % (Auto) 0.9 L (2-4) % Baso % (Auto) 0.2 (0-1) % Sodium 138 L (140-148) mmol/L Potassium 3.7 (3.6-5.2) mmol/L Chloride 105 (100-108) mmol/L Carbon Dioxide 24 (21-32) mmol/L Anion Gap 12.7 (5.0-14.0) mmol/L BUN 4 L (7-18) mg/dL Creatinine 0.7 (0.6-1.0) mg/dL Est Cr Clr Drug Dosing 54.79 mL/min Estimated GFR (MDRD) > 60 (>60) Glucose 229 H (74-106) mg/dL POC Glucose 178 H (74-106) mg/dL Calcium 8.0 L (8.5-10.1) mg/dL Magnesium 1.7 L (1.8-2.4) mg/dL Result Diagrams: 03/07/21 05:11 03/07/21 05:11 Sepsis Event Note - Evaluation Sepsis Screening Result: No Definite Risk - Focused Exam Vital Signs: Vital Signs Temp Pulse Resp BP BP Pulse Ox 03/07/21 08:45 164/68 H 03/07/21 07:00 97.7 F 78 16 140/58 L 95 03/07/21 02:20 97.1 F 87 18 141/58 H 94 L - Problem List Review Problem List Initiated/Reviewed/Updated: Yes - My Orders Last 24 Hours: My Active Orders 03/06/21 12:00 Ciprofloxacin in D5W [Cipro in D5W 400 MG/200 ML] 400 mg Premix Bag 1 bag IV Q8H 03/06/21 13:30 Lactobacillus Rhamnosus GG [Culturelle] 1 cap PO BID 03/07/21 Breakfast GI Soft Low Fiber [Soft Diet] [DIET] 03/07/21 11:15 Ciprofloxacin [Ciprofloxacin HCl] 500 mg PO BID [facility] 250 mg PO Q6H 03/07/21 11:30 GLUCOSE POC LAB TO COLLECT JPM [POC] QIDACANDBED 03/07/21 16:30 GLUCOSE POC LAB TO COLLECT JPM [POC] QIDACANDBED 03/07/21 21:00 GLUCOSE POC LAB TO COLLECT JPM [POC] QIDACANDBED 03/08/21 07:30 GLUCOSE POC LAB TO COLLECT JPM [POC] QIDACANDBED 03/08/21 11:30 GLUCOSE POC LAB TO COLLECT JPM [POC] QIDACANDBED 03/08/21 16:30 GLUCOSE POC LAB TO COLLECT JPM [POC] QIDACANDBED 03/08/21 21:00 GLUCOSE POC LAB TO COLLECT JPM [POC] QIDACANDBED 03/09/21 07:30 GLUCOSE POC LAB TO COLLECT JPM [POC] QIDACANDBED 03/09/21 11:30 GLUCOSE POC LAB TO COLLECT JPM [POC] QIDACANDBED 03/09/21 16:30 GLUCOSE POC LAB TO COLLECT JPM [POC] QIDACANDBED 03/09/21 21:00 GLUCOSE POC LAB TO COLLECT JPM [POC] QIDACANDBED 03/10/21 07:30 GLUCOSE POC LAB TO COLLECT JPM [POC] QIDACANDBED 03/10/21 11:30 GLUCOSE POC LAB TO COLLECT JPM [POC] QIDACANDBED 03/10/21 16:30 GLUCOSE POC LAB TO COLLECT JPM [POC] QIDACANDBED - Plan Plan:: ASSESSMENT AND PLAN INFECTIOUS COLITIS-pain has resolved with current management, stools now semiformed with only a small amount of blood -Soft low residue diet -Pain and nausea medication as needed -Oral ciprofloxacin and Flagyl HYPERTENSION -Continue outpatient medications HYPOTHYROIDISM -Continue outpatient thyroid replacement MAINTENANCE ISSUES -DVT prophylaxis; SCUDs, hold on anticoagulation because of bleeding -GI prophylaxis; not indicated -Angeles catheter; not indicated -Nutrition; soft low residue diet -Nicotine dependence; not required CODE STATUS-FULL CODE ADMISSION STATUS-patient will be admitted to inpatient status, expect at least a 2 night hospital stay for evaluation and management of problems as outlined above. At the time of this admission I do not reasonably expected evaluation and management of this problem will require more than a 96 hour hospital stay. DISPOSITION-anticipate discharge to home after the hospital stay. PRIMARY CARE PROVIDER-Dr. Ro
[2021-03-07] MEDS: metroNIDAZOLE 250 MG Tab PO SCH ×2 (14:54→17:31)
[2021-03-07] MEDS: Ciprofloxacin 500 MG Tab PO SCH (16:29)
[2021-03-07] MEDS: Rosuvastatin 10 MG Tab PO SCH (20:58)
[2021-03-08] MEDS: metroNIDAZOLE 250 MG Tab PO SCH ×3 (00:28→11:31)
[2021-03-08] MEDS: Insulin Lispro 100 Unit/ML 3 ML KwikPen SUBCUT SCH ×2 (07:32→11:45)
[2021-03-08 07:40] VITALS: BP 159/60; PULSE 89
[2021-03-08] MEDS: Ciprofloxacin 500 MG Tab PO SCH (07:41)
[2021-03-08] MEDS: Levothyroxine 112 MCG Tab PO SCH (07:41)
[2021-03-08] MEDS: Magnesium Oxide 400 MG Tab PO SCH (07:59)
[2021-03-08] MEDS: Diltiazem 180 MG Cap.CD PO SCH (07:59)
[2021-03-08] MEDS: Aspirin 81 MG Tab.EC PO SCH (07:59)
[2021-03-08] MEDS: Lactobacillus Rhamnosus GG (Probiotic) Cap PO SCH (08:00)
[2021-03-08] MEDS: Lisinopril 10 MG Tab PO SCH (08:00)
--- NOTE | 2021-03-08 11:14 | PCM.DCSUM1 ---
Discharge Summary - Hospital Course Brief History: Ms. Welch is a 80-year-old woman who was admitted through the emergency department with abdominal pain and bloody diarrhea secondary to infectious colitis. - Discharge Data Discharge Date: 03/08/21 Discharge Disposition: Home, Self-Care 01 Condition: Fair - Referral to Home Health Primary Care Physician: Carmen Ro MD - Discharge Diagnosis/Problem(s) (1) Infectious colitis SNOMED Code(s): 62627862 ICD Code: A09 - INFECTIOUS GASTROENTERITIS AND COLITIS, UNSPECIFIED Status: Acute Current Visit: Yes (2) Abdominal pain SNOMED Code(s): 59173128 ICD Code: R10.9 - UNSPECIFIED ABDOMINAL PAIN Status: Acute Current Visit: No (3) Type 2 diabetes mellitus SNOMED Code(s): 34229903 ICD Code: E11.9 - TYPE 2 DIABETES MELLITUS WITHOUT COMPLICATIONS Status: Chronic Current Visit: No - Patient Summary/Data Hospital Course: Ms. Welch is a 80-year-old woman who was admitted through the emergency department with abdominal pain and bloody diarrhea secondary to infectious colitis. She felt well throughout the day prior to admission, but in the evening began to experience cramping abdominal pain. She had diarrhea during the [facility] hours which quickly became bloody and she was passing bloody stools with clots. Because of her symptoms she presented to the emergency department for further evaluation. She has never experienced similar symptoms or colitis in the past. Hemoglobin was obtained and found to be within normal range. White blood cell count is elevated, she denies fever or chills. CT scan of the abdomen pelvis was obtained and showed evidence of inflammation in the descending and first part of the sigmoid colon. These findings were felt to be consistent with infection versus other inflammatory process. On admission she was given IV fluids for hydration as well as pain medication as needed. She was started on IV antibiotic therapy with ciprofloxacin and metronidazole. She impr bertin over the next few days of hospitalization and by the time of discharge she was still having some diarrhea but it was no longer bloody and her abdominal pain had resolved. Metformin was held during hospitalization, 4 times daily glucometers were monitored and she was treated with low-dose sliding scale Humalog. Prior to discharge she was tolerating a soft low residue diet without difficulty. She will be discharged home on additional 6 days of oral antibiotic therapy with ciprofloxacin and metronidazole. Activity will be as tolerated. Follow-up appointment will be scheduled with her primary care provider within 1 week. - Patient Instructions Diet: Usual Diet as Tolerated, GI Soft/Low Residue/Low Fiber Activity: As Tolerated Other/Special Instructions: Schedule follow-up appointment with primary care provider within 1 week - Discharge Plan *PRESCRIPTION DRUG MONITORING PROGRAM REVIEWED*: Not Applicable *COPY OF PRESCRIPTION DRUG MONITORING REPORT IN PATIENT SE: Not Applicable Prescriptions/Med Rec: Ciprofloxacin [Ciprofloxacin HCl] 500 mg PO BIDAC #12 tablet Lactobacillus Rhamnosus GG [Culturelle] 1 cap PO BID #60 cap metroNIDAZOLE 250 mg PO QID #24 tablet Home Medications: Home Meds Aspirin [Children's Aspirin] 2 tab PO DAILY 12/27/13 [History] Calcium Carb, Citrate/Vit D3 [Calcium + D3 ER Tablet] 750 tab PO BID 12/27/13 [History] Diltiazem HCl [Diltiazem ER] 1 tab PO DAILY 12/27/13 [History] Glucosamine/D3/Boswellia Kathryn [Osteo Bi-Flex Caplet] 1 tab PO DAILY 12/27/13 [History] Multivitamin [Multi-Vitamin Daily] 1 tab PO DAILY 12/27/13 [History] Niacin 1,000 mg PO DAILY 12/27/13 [History] Benson-3 Fatty Acids [Fish Oil] 1,000 mg PO DAILY 12/27/13 [History] cycloSPORINE [Restasis] 1 drop TOP BID 12/27/13 [History] Levothyroxine 1 tab PO DAILY 11/17/16 [History] Lisinopril 1 tab PO DAILY 11/17/16 [History] Rosuvastatin Calcium 5 mg PO BEDTIME 11/17/16 [History] metFORMIN [Glucophage] 500 mg PO BIDMEALS 11/17/16 [History] Ciprofloxacin [Ciprofloxacin HCl] 500 mg PO BIDAC #12 tablet 03/08/21 [Rx] Lactobacillus Rhamnosus GG [Culturelle] 1 cap PO BID #60 cap 03/08/21 [Rx] metroNIDAZOLE 250 mg PO QID #24 tablet 03/08/21 [Rx] Patient Handouts: Fall Prevention in the Home, Adult, Abno-ke-Mjai, Soft-Food Eating Plan, Colitis Referrals: Carmen Ro MD [Primary Care Provider] - 03/15/21 1:40 pm (Please arrive 15 minutes early to register for your appointment.) - Discharge Summary/Plan Comment DC Time >30 min.: No Total # of Minutes for Discharge Time: 20 - Patient Data Vitals - Most Recent: Last Vital Signs Temp 96.8 F L 03/08/21 07:36 Pulse 89 03/08/21 07:36 Resp 12 03/08/21 07:36 BP 159/60 H 03/08/21 08:00 Pulse Ox 98 03/08/21 07:36 Weight - Most Recent: 178 lb 5.663 oz I&O - Last 24 hours: Intake & Output 03/07/21 03/08/21 03/08/21 22:59 06:59 14:59 Intake Total 1900 Output Total 900 Balance 1900 -900 Lab Results - Last 24 hrs: Laboratory Results - last 24 hr 03/07/21 03/07/21 03/07/21 Range/Units 11:18 16:19 20:42 POC Glucose 182 H 213 H 288 H (74-106) mg/dL 03/08/21 Range/Units 07:29 POC Glucose 298 H (74-106) mg/dL Med Orders - Current: Current Medications Acetaminophen (Acetaminophen 325 Mg Tab) 650 mg PO Q4H PRN PRN Reason: Pain (Mild 1-3)/fever Artificial Tears (Hypromellose 0.3% Ophth Soln 15 Ml Bottle) 0 ml EYEBOTH QID PRN PRN Reason: Dry Eyes Aspirin (Aspirin 81 Mg Tab.Ec) 162 mg PO DAILY [facility] Last Admin: 03/08/21 07:59 Dose: 162 mg Documented by: Ciprofloxacin (Ciprofloxacin 500 Mg Tab) 500 mg PO BIDAC [facility] Last Admin: 03/08/21 07:41 Dose: 500 mg Documented by: Dextrose (Glucose Gel 15 Gm In 37.5 Gm Tube) 15 gm PO ONETIME PRN PRN Reason: Hypoglycemia Dextrose/Water (50% Dextrose In Water 50 Ml Syringe) 50 ml IV ONETIME PRN PRN Reason: Hypoglycemia Diltiazem HCl (Diltiazem 180 Mg Cap.Cd) 360 mg PO DAILY [facility] Last Admin: 03/08/21 07:59 Dose: 360 mg Documented by: Insulin Human Lispro (Insulin Lispro 100 Unit/Ml 3 Ml Kwikpen) 0 unit SUBCUT QIDACANDBED [facility]; Protocol Last Admin: 03/08/21 07:32 Dose: 3 units Documented by: Lactobacillus Rhamnosus (Lactobacillus Rhamnosus Gg (Probiotic) Cap) 1 cap PO BID [facility] Last Admin: 03/08/21 08:00 Dose: 1 cap Documented by: Levothyroxine Sodium (Levothyroxine 112 Mcg Tab) 112 mcg PO ACBREAKFAST [facility] Last Admin: 03/08/21 07:41 Dose: 112 mcg Documented by: Lisinopril (Lisinopril 10 Mg Tab) 10 mg PO DAILY [facility] Last Admin: 03/08/21 08:00 Dose: 10 mg Documented by: Magnesium Oxide (Magnesium Oxide 400 Mg Tab) 400 mg PO BID [facility] Last Admin: 03/08/21 07:59 Dose: 400 mg Documented by: Metronidazole (Metronidazole 250 Mg Tab) 250 mg PO Q6H [facility] Last Admin: 03/08/21 05:04 Dose: 250 mg Documented by: Ondansetron HCl (Ondansetron 4 Mg/2 Ml Sdv) 4 mg IV Q4H PRN PRN Reason: Nausea/Vomiting Oxycodone HCl (Oxycodone 5 Mg Tab) 5 mg PO Q4H PRN PRN Reason: Pain (moderate 4-6) Rosuvastatin Calcium (Rosuvastatin 10 Mg Tab) 5 mg PO BEDTIME [facility] Last Admin: 03/07/21 20:58 Dose: 5 mg Documented by: Sodium Chloride (Sodium Chloride 0.9% 10 Ml Syringe) 10 ml FLUSH ASDIRECTED PRN PRN Reason: Keep Vein Open Discontinued Medications Hydromorphone HCl (Hydromorphone 0.5 Mg/0.5 Ml Syringe) 0.5 mg IVPUSH ONETIME ONE Stop: 03/05/21 14:12 Last Admin: 03/05/21 14:27 Dose: 0.5 mg Documented by: Sodium Chloride (Normal Saline) 1,000 mls @ 999 mls/hr IV ASDIRECTED [facility] Last Admin: 03/05/21 14:27 Dose: 999 mls/hr Documented by: Sodium Chloride (Normal Saline) 80 mls @ 3 mls/sec IV ASDIRECTED [facility] Last Admin: 03/05/21 15:37 Dose: 3 mls/sec Documented by: Sodium Chloride (Normal Saline) 1,000 mls @ 250 mls/hr IV ASDIRECTED [facility] Ciprofloxacin/Dextrose 400 mg/ (Premix) 200 mls @ 200 mls/hr IV Q8H [facility] Last Admin: 03/06/21 03:28 Dose: 200 mls/hr Documented by: Metronidazole 500 mg/ Premix 100 mls @ 100 mls/hr IV Q8H [facility] Last Admin: 03/06/21 01:56 Dose: 100 mls/hr Documented by: Sodium Chloride (Normal Saline) 1,000 mls @ 125 mls/hr IV ASDIRECTED [facility] Last Admin: 03/06/21 07:06 Dose: 125 mls/hr Documented by: Metronidazole 500 mg/ Premix 100 mls @ 100 mls/hr IV Q8H [facility] Last Admin: 03/07/21 11:15 Dose: Not Given Documented by: Ciprofloxacin/Dextrose 400 mg/ (Premix) 200 mls @ 200 mls/hr IV Q8H [facility] Last Admin: 03/07/21 04:30 Dose: 200 mls/hr Documented by: Magnesium Sulfate 2 gm/ Premix 50 mls @ 25 mls/hr IV Q6H [facility] Stop: 03/06/21 16:59 Last Admin: 03/06/21 14:25 Dose: 25 mls/hr Documented by: Sodium Chloride (Normal Saline) 1,000 mls @ 50 mls/hr IV ASDIRECTED [facility] Last Admin: 03/07/21 00:56 Dose: 50 mls/hr Documented by: Magnesium Sulfate 2 gm/ Premix 50 mls @ 25 mls/hr IV Q6H [facility] Stop: 03/07/21 10:59 Last Admin: 03/07/21 08:50 Dose: 25 mls/hr Documented by: Iopamidol (Iopamidol 612 Mg/Ml 150 Ml Bottle) 119 ml IV . DIRECTED [facility] Last Admin: 03/05/21 15:37 Dose: 119 ml Documented by: Ondansetron HCl (Ondansetron 4 Mg/2 Ml Sdv) 4 mg IVPUSH ONETIME ONE Stop: 03/05/21 14:11 Last Admin: 03/05/21 14:27 Dose: 4 mg Documented by: Potassium Chloride (Potassium Chloride 20 Meq Tab.Er) 40 meq PO ONETIME ONE Stop: 03/06/21 08:31 Last Admin: 03/06/21 08:27 Dose: 40 meq Documented by: Sodium Chloride (Sodium Chloride 0.9% 10 Ml Syringe) 10 ml FLUSH ASDIRECTED PRN PRN Reason: Keep Vein Open Last Admin: 03/05/21 15:37 Dose: 10 ml Documented by: - Exam General: Reports: Alert, Oriented, Cooperative, No Acute Distress Lungs: Reports: Clear to Auscultation, Normal Respiratory Effort Cardiovascular: Reports: Regular Rate, Regular Rhythm, No Murmurs GI/Abdominal Exam: Soft, Non-Tender, No Organomegaly, No Distention Extremities: Non-Tender, No Pedal Edema *Q Meaningful Use (DIS) - VTE *Q VTE Pharmacological Contraindications *Q: Active Hemorrhage
== END 2021-03-08 11:47 | disposition home or self-care (01) | DRG 392 ==
LOC: JP.ED 12:19 → JP.MS 18:14
PROVIDERS: ADMIT Hospitalist; ATTEND Hospitalist
DX: A09 Infectious gastroenteritis and colitis, unspecified (principal); E11.9 Type 2 diabetes mellitus without complications; E78.5 Hyperlipidemia, unspecified; K52.9 Noninfective gastroenteritis and colitis, unspecified; E86.0 Dehydration; Z87.81 Personal history of (healed) traumatic fracture; Z90.710 Acquired absence of both cervix and uterus; Z98.890 Other specified postprocedural states; Z90.89 Acquired absence of other organs; H54.7 Unspecified visual loss; E78.00 Pure hypercholesterolemia, unspecified; I10 Essential (primary) hypertension; E03.9 Hypothyroidism, unspecified; Z88.8 Allergy status to other drugs, medicaments and biological substances; Z91.040 Latex allergy status; Z79.84 Long term (current) use of oral hypoglycemic drugs; Z79.82 Long term (current) use of aspirin; Z79.890 Hormone replacement therapy; Z79.899 Other long term (current) drug therapy; Z20.822 Contact with and (suspected) exposure to COVID-19
CPT/HCPCS: 36415; 74177; 80053; 81001; 85025; 86140; J1170; J2405; J7030; Q9967; U0002; 80048; 82947; 83735; 85018; A9270-GY; J0744; J1815; J3475; J3490

== ENCOUNTER 2021-05-01 06:10 | Day surgery (SDC) | payer MEDICARE, BC ==
[2021-05-01] MEDS ORDERED: Propofol 200 MG/20 ML SDV ONE ×2 (07:11)
[2021-05-01] MEDS ORDERED: Midazolam 1 MG/ML 2 ML SDV ONE (07:11)
[2021-05-01] MEDS ORDERED: fentaNYL 100 MCG/2 ML SDV ONE (07:11)
[2021-05-01] MEDS: Sodium Chloride 0.9% 1,000 ML IV SCH (07:14)
[2021-05-01 10:09] VITALS: BP 133/72; PULSE 72
== END 2021-05-01 10:00 | disposition home or self-care (01) ==
LOC: JP.SDS 06:10
PROVIDERS: ATTEND Surgery
DX: K57.31 Diverticulosis of large intestine without perforation or abscess with bleeding (principal); K20.90 Esophagitis, unspecified without bleeding; F17.200 Nicotine dependence, unspecified, uncomplicated
CPT/HCPCS: 43239; 45378; J2250; J2704; J3010; J7030